=== PATIENT | female | born 1965 | race African-American/Black ===

== ENCOUNTER 2025-11-02 15:08 | Outpatient (AMB) | payer OTHER, SELFPAY ==
[2025-11-02 15:13] VITALS: BMI 29.0
--- NOTE | 2025-11-02 15:13 | A.PHYSOV_ITS ---
Vital Signs 11/02/25 15:13 Height 5 ft 4 in Weight 169 lb BMI 29.0 Intake Visit Reasons: F/U after Physical Therapy Intake Note: Patient is a 60 year old female here today for follow up after PT Cad Application Support Specialist Required: No Allergies No Known Allergies Allergy (Verified 11/02/25 15:15) HPI Comments Details: History of Present Illness The patient is a 60 year old female presenting with left knee pain and foot numbness. 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 The pain is located from the knee down and is currently rated at a 5 out of 10. She denies any associated back pain, thigh pain, or symptoms of sciatica. The patient also complains of numbness in her left foot, though her bran is not numb. The numbness is not painful but is annoying, particularly when it's cold. Previous physical therapy did not provide relief for her symptoms. She has taken Aleve, but it does not really help her pain. A left knee x-ray from August 21, 2025, revealed minimal degenerative changes. Patient does report paresthesias to the left foot. She has a pain level today of 7/10. Patient is not requesting any sort of injections as she is afraid of needles. Pain Description - Location: The pain is in the left knee, described as being from the knee down. - Severity: Current pain level is a 5 out of 10. - Exacerbating factors: Pain worsens with activity, such as going up and down stairs and standing. - Relieving factors: Pain is minimal when not using the knee. - Associated symptoms: Numbness is present in the left foot. Results - Imaging: - Left knee X-ray (August 21, 2025): Minimal degenerative change. [facility] Social History Alcohol intake: current Alcohol intake frequency: does not drink Patient Tobacco Use Status: Never used Tobacco Use of substances other than those prescribed or required for medical reasons: No Current occupational status: employed Review of Systems Narrative Review of Systems - Musculoskeletal: Reports pain in the left knee. - Neurological: Reports numbness in the left foot. - Denies back pain, thigh pain, or sciatica. - Constitutional: Denies claustrophobia. Physical Exam Exam Exam: Physical Exam Lumbar Spine: Nontender to palpation of her lumbar spine. Full range of motion. Special Tests: Lhermittes sign was negative Heel Toe walk is normal Left straight leg raise: Negative Right straight leg raise: Negative Special tests Sharon test is negative Ganslen's test is negative SI Joint compression test negative Ness test negative Piriformis stretch is negative Lower Extremities: Full range of motion bilateral lower extremities. She is tender to the medial joint line of the left knee. She also has tenderness with mild popliteal fullness to posterior knee. Her ligaments are intact. She does have pain with Abbi testing medially. Neuro: Sensation: Intact to lower extremities bilaterally Strength L2 (Psoas): 5/5 on the left and 5/5 on the right. L3 (Quads): 5/5 on the left and 5/5 on the right. L4 (Ant tibialis): 5/5 on the left and 5/5 on the right. L5 (EHL) 5/5 on the left and 5/5 on the right. S1 (Gastroc): 5/5 on the left and 5/5 on the right. DTR L4: (Patellar) Left 2 Right 2 S1: (Achilles) Left 1 Right 1 Babinski Downgoing No pathologic clonus. No involuntary movement. Vital Signs: BMI result Body Mass Index 29.0 Assessment & Plan Assessment & Plan (1) Left knee pain: Code(s): M25.562 - Pain in left knee Category: Medical Qualifiers: Chronicity: chronic Qualified Code(s): M25.562 - Pain in left knee; G89.29 - Other chronic pain (2) Neuropathy: Code(s): G62.9 - Polyneuropathy, unspecified Category: Medical (3) Acute medial meniscus tear of left knee: Code(s): S83.242A - Other tear of medial meniscus, current injury, left knee, initial encounter Category: Medical Plan Pain Management - Affect: The patient describes her foot numbness as annoying. - Analgesia: Current pain is rated a 5 out of 10. - She takes Aleve for pain, but reports it is not really helpful. 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 Plan Patient was informed and verbally consented to the use of an ambient scribe for clinic note documentation during this visit. 1. Left Knee Pain The patient's knee pain is associated with activity, and an X-ray showed minimal degenerative changes. It was explained that this mild arthritis may not be the cause of her pain. Options discussed included a cortisone shot to see if the pain resolves, which would confirm the knee as the source, or an MRI of the knee for a more detailed evaluation of cartilage and other structures, as an MRI can reveal conditions like a meniscus tear or more significant arthritis not visible on X-ray. Recommend MRI of her left knee as she has failed conservative treatment. We are concerned for meniscus tear. 2. Left Foot Numbness The patient's foot numbness is unlikely related to her knee problem. Sciatica is less likely given her lack of back pain. An EMG was discussed as a diagnostic option to evaluate for a pinched nerve or nerve damage, which could help i dentify the source of the numbness. The patient has opted to defer this workup for now and focus on the knee evaluation. Discussion Notes I discussed the results of the recent left knee x-ray, which showed only minimal degenerative changes. I presented a few different diagnostic paths. For the knee pain, I offered a cortisone injection or an MRI to better evaluate the joint structures, noting an MRI could reveal issues like a meniscus tear or worsening arthritis not seen on the x-ray. For the foot numbness, I explained that it's likely unrelated to her knee and discussed an EMG as a test to check for a pinched nerve or other nerve damage, specifying that the procedure can be uncomfortable. The patient is not claustrophobic and has no metal in her body. After discussing the options, she decided to start with an MRI of the left knee. I will place the order for the MRI and we will obtain insurance authorization. We will have her return for a follow-up appointment to review the results. Patient Instructions - I am placing an order for an MRI of your left knee. - My office will contact your insurance company to get this test approved. - Once the MRI is approved, you will be contacted to schedule your appointment. - The MRI does not involve any needles. - After the MRI is complete, you will need to schedule a follow-up visit with me to discuss the results. Orders: Orders MR knee LT wo con Today G89.29 - Other chronic pain, M25.562 - Pain in left knee, M25.569 - Pain in unspecified knee, S83.242A - Other tear of medial meniscus, current injury, left knee, initial encounter Coding Level of Care Code Tele Est Pt Level 3 (88334) Diagnoses Chronic pain of left knee M25.562; G89.29 Chronicity: chronic Neuropathy G62.9 Acute medial meniscus tear of left knee S83.242A
--- OUTSIDE RECORDS SUMMARY | 2025-11-02 21:43 | XMS_ITS | Continuity of Care Document ---
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 Plan of Treatment Reminders Order Date Submit Date Provider Last Modified By Organization Details Last Modified Time Details Appointments FOLLOW UP 30MIN 2025 03:30P M Audie Moss PA-C Not available Not available Not available Lab None recorded . Referral None recorded . Procedures None recorded . Surgeries None recorded . Imaging None recorded . Medication Orders None recorded . Patient TargetsNo targets recorded. Patient Instructions Encounter Date Encounter Id Patient Instructions Last Modified By Organization Details Last Modified Time 10/12/2025 [id number] encouraged pt to check outstanding labs as directed [email or web address] Not available 10/12/2025 15:48:36 Medications (OTC , herbal therapies, supplements) reviewed and reconciled with patient and or caregiver, including potential side effects, drug interactions, instructions, and the consequences of not taking medication. Reviewed potential barriers to medication adherence, such as side effects from medication or cost of medication. [email or web address] Not available 10/12/2025 15:55:24 Reason for Referral None Reported. Problems Name Problem SNOMED Code Status Onset Date Resolution Date Notes Provider Name and Address Organization Details Recorded Time Visual impairme nt [id number] Completed 08/27/2025 Audie Moss PA-C [address] [facility] [address], [place], [address], [place] [facility] 5 15:42:37 Generali zed abdomina l pain 206561725 Completed 200706/25/2014 RECORDED 08/10/20 08 1:22PM BY ROSY ÁLVAREZ, ANNOTATI ON/ADDEN DUM Otoniel D'Alessan eleazar null, [facility] 5 16:38:26 Right lower quadrant pain 279040198 Completed 200706/25/2014 RECORDED 08/10/20 08 1:22PM BY ANA HALLMANATI ON/ADDEN DUM Otoniel D'Alessan eleazar null, [facility] 5 16:38:26 Bronchos pasm [id number] Completed 200706/25/2014 RECORDED 08/10/20 08 1:22PM BY ROSY ÁLVAREZ, ANAATI ON/ADDEN DUM Otoniel D'Alessan eleazar null, [facility] 5 16:38:25 General examinat ion of patient Completed 200706/25/2014 RECORDED 08/10/20 08 1:22PM BY ANA HALLMANATI ON/ADDEN DUM Otoniel D'Alessan eleazar null, [facility] 5 16:38:26 Generali zed abdomina l pain 555173939 Completed 200706/26/2014 RECORDED 08/10/20 08 1:22PM BY ANA HALLMANATI ON/ADDEN DUM Otoniel D'Alessan eleazar null, [facility] 5 16:38:26 Right lower quadrant pain 661651250 Completed 200706/26/2014 RECORDED 08/10/20 08 1:22PM BY ROSY ÁLVAREZ ANNOTATI ON/ADDEN DUM Otoniel D'Alessan eleazar null, [facility] 5 16:38:26 Bronchos pasm [id number] Completed 200706/26/2014 RECORDED 08/10/20 08 1:22PM BY ROSY ÁLVAREZ, ANAATI ON/ADDEN DUM Otoniel D'Alessan eleazar null, [facility] 5 16:38:25 General examinat ion of patient Completed 200706/26/2014 RECORDED 08/10/20 08 1:22PM BY ROSY ÁLVAREZ, ANNOTATI ON/ADDEN DUM Otoniel D'Alessan eleazar null, [facility] 5 16:38:26 Generali zed abdomina l pain 110210531 Completed 200706/02/2014 RECORDED 08/10/20 08 1:22PM BY ROSY ÁLVAREZ, ANNOTATI ON/ADDEN DUM Otoniel D'Alessan eleazar null, [facility] 5 16:38:26 Right lower quadrant pain 615332360 Completed 200706/02/2014 RECORDED 08/10/20 08 1:22PM BY ROSY ÁLVAREZ, ANNOTATI ON/ADDEN DUM Otoniel D'Alessan eleazar null, [facility] 5 16:38:26 Bronchos pasm [id number] Completed 200706/02/2014 RECORDED 08/10/20 08 1:22PM BY ROSY ÁLVAREZ, ANNOTATI ON/ADDEN DUM Otoniel D'Alessan eleazar null, [facility] 5 16:38:25 General examinat ion of patient Completed 200706/02/2014 RECORDED 08/10/20 08 1:22PM BY ROSY ÁLVAREZ, ANAATI ON/ADDEN DUM Otoniel D'Alessan eleazar null, [facility] 5 16:38:26 Screenin g for malignan t neoplasm of colon Completed 200806/25/2014 RECORDED 04/16/20 09 10:12AM BY CHLOE BHAKTA MA, ANNOTATI ON/ADDEN DUM Otoniel D'Alessan eleazar null, [facility] 5 16:38:26 Screenin g for malignan t neoplasm of colon Completed 200806/26/2014 RECORDED 04/16/20 09 10:12AM BY CHLOE BHAKTA MA, ANNOTATI ON/ADDEN DUM Otoniel bush null, [facility] 5 16:38:26 Screenin g for malignan t neoplasm of colon Completed 200806/02/2014 RECORDED 04/16/20 09 10:12AM BY CHLOE BHAKTA MA, ANNOTATI ON/ADDEN DUM Otoniel bush null, [facility] 5 16:38:26 Influenz a vaccine needed [id number] 06 Completed 201006/25/2014 RECORDED 09/08/20 11 9:40AM BY CHLOE BHAKTA MA, OFFICE VISIT Otoniel zarate, [facility] 5 16:38:26 Influenz a vaccine needed 43687313723 06 Completed 201006/26/2014 RECORDED 09/08/20 11 9:40AM BY CHLOE BHAKTA MA, OFFICE VISIT Otoniel zarate, [facility] 5 16:38:26 Influenz a vaccine needed 78054698467 06 Completed 201006/02/2014 RECORDED 09/08/20 11 9:40AM BY CHLOE BHAKTA MA, OFFICE VISIT Otoniel zarate, [facility] 5 16:38:26 Left lower quadrant pain 885581054 Completed 201206/25/2014 RECORDED 01/16/20 13 2:28PM BY JOSHUA ARTHUR MA, ANNOTATI ON/ADDEN [facility] Otoniel Dede bush null, [facility] 5 16:38:26 Abdomina l pain [id number] Completed 201206/25/2014 IMPRESSI ON: AFEBRILE , NON-ACUT E ABDOMEN; RECORDED 01/16/20 13 2:28PM BY JOSHUA ARTHUR MA, ANNOTATI ON/ADDEN DUM Otoniel D'Alessan eleazar null, [facility] 5 16:38:25 Acute pharyngi tis 465327581 Completed 201206/25/2014 RECORDED 01/16/20 13 2:28PM BY JOSHUA ARTHUR MA, ANNOTATI ON/ADDEN DUM Otoniel D'Alessan eleazar null, [facility] 5 16:38:25 Patient status finding [id number] Completed 201206/25/2014 RECORDED 01/16/20 13 2:27PM BY JOSHUA ARTHUR MA, ANNOTATI ON/ADDEN DUM Chloe boudreaux MA null, [facility] 6 15:28:52 Screenin g for malignan t neoplasm of breast Completed 201206/25/2014 RECORDED 01/16/20 13 2:28PM BY JOSHUA ARTHUR MA, ANNOTATI ON/ADDEN DUM Otoniel D'Alessan eleazar null, [facility] 5 16:38:26 Cough [id number] Completed 201206/25/2014 RECORDED 01/16/20 13 2:28PM BY JOSHUA ARTHUR MA, ANNOTATI ON/ADDEN DUM Otoniel D'Alessan eleazar null, [facility] 5 16:38:25 Cramp in limb 541756389 Completed 201206/25/2014 RECORDED 01/16/20 13 2:28PM BY JOSHUA ARTHUR MA, ANNOTATI ON/ADDEN DUM Otoniel D'Alessan eleazar null, [facility] 5 16:38:25 Female genital organ symptoms 429182607 Completed 201206/25/2014 RECORDED 01/16/20 13 2:28PM BY JOSHUA ARTHUR MA, ANNOTATI ON/ADDEN DUM Otoniel D'Alessan eleazar null, [facility] 5 16:38:25 Headache [id number] Completed 201206/25/2014 RECORDED 01/16/20 13 2:27PM BY JOSHUA ARTHUR MA, ANNOTATI ON/ADDEN DUM Otoniel D'Alessan eleazar null, [facility] 5 16:38:25 General symptom [id number] Completed 201206/25/2014 RECORDED 01/16/20 13 2:28PM BY JOSHUA ARTHUR MA, ANAATI ON/ADDEN DUM Otoniel D'Alessan eleazar null, [facility] 5 16:38:25 Knee pain Completed 201206/25/2014 IMPRESSI ON: XRAY C/W BARRETO'S CYST, CAUSING SIGNIFIC ANT FUNCTION AL IMPAIRME NT, X 6 MONTHS; RECORDED 01/16/20 13 2:28PM BY JOSHUA ARTHUR MA, JENNIFER ON/ADDEN DUM Otoniel Shanita'Alessan eleazar null, [facility] 5 16:38:25 Malaise and fatigue 365701490 Completed 201206/25/2014 RECORDED 01/16/20 13 2:28PM BY JOSHUA ARTHUR MA, ANNOTATI ON/ADDEN DUM Otoniel D'Alessan eleazar null, [facility] 5 16:38:25 Pneumoni a 806176233 Completed 201206/25/2014 RECORDED 01/16/20 13 2:27PM BY JOSHUA ARTHUR MA, ANNOTATI ON/ADDEN DUM Otoniel D'Alessan eleazar null, [facility] 5 16:38:25 Psychoge kristin headache 42654542 Completed 201206/25/2014 RECORDED 01/16/20 13 2:28PM BY JOSHUA ARTHUR MA, ANNOTJOSELO ON/ADDEN DUM Otoniel D'Alessan eleazar null, [facility] 5 16:38:25 Urinary tract infectio us disease 87112983 Completed 201206/25/2014 RECORDED 01/16/20 13 2:27PM BY JOSHUA ARTHUR MA, ANNOTATI ON/ADDEN DUM Otoniel D'Alessan eleazar null, [facility] 5 16:38:25 Left lower quadrant pain 304874126 Completed 201206/26/2014 RECORDED 01/16/20 13 2:28PM BY JOSHUA ARTHUR MA, ANNOTATI ON/ADDEN DUM Otoniel D'Alessan eleazar null, [facility] 5 16:38:26 Abdomina l pain 87337147 Completed 201206/26/2014 IMPRESSI ON: AFEBRILE , NON-ACUT E ABDOMEN; RECORDED 01/16/20 13 2:28PM BY JOSHUA ARTHUR MA, ANNOTATI ON/ADDEN DUM Otoniel D'Alessan eleazar null, [facility] 5 16:38:25 Acute pharyngi tis 180559436 Completed 201206/26/2014 RECORDED 01/16/20 13 2:28PM BY JOSHUA ARTHUR MA, ANNOTATI ON/ADDEN DUM Otoniel D'Alessan eleazar null, [facility] 5 16:38:25 Patient status finding [id number] Completed 201206/26/2014 RECORDED 01/16/20 13 2:27PM BY JOSHUA ARTHUR MA, ANNOTATI ON/ADDEN DUM Chloe boudreaux MA null, [facility] 6 15:28:52 Screenin g for malignan t neoplasm of breast Completed 201206/26/2014 RECORDED 01/16/20 13 2:28PM BY JOSHUA ARTHUR MA, ANNOTATI ON/ADDEN DUM Otoniel D'Alessan eleazar null, [facility] 5 16:38:26 Cough [id number] Completed 201206/26/2014 RECORDED 01/16/20 13 2:28PM BY JOSHUA ARTHUR MA, ANNOTATI ON/ADDEN DUM Otoniel D'Alessan eleazar null, [facility] 5 16:38:25 Cramp in limb 673621243 Completed 201206/26/2014 RECORDED 01/16/20 13 2:28PM BY JOSHUA ARTHUR MA, ANNOTATI ON/ADDEN DUM Otoniel D'Alessan eleazar null, [facility] 5 16:38:25 Female genital organ symptoms [id number] Completed 201206/26/2014 RECORDED 01/16/20 13 2:28PM BY JOSHUA ARTHUR MA, ANAATI ON/ADDEN DUM Otoniel D'Alessan eleazar null, [facility] 5 16:38:25 Headache [id number] Completed 201206/26/2014 RECORDED 01/16/20 13 2:27PM BY JOSHUA ARTHUR MA, ANAATI ON/ADDEN DUM Otoniel D'Alessan eleazar null, [facility] 5 16:38:25 General symptom [id number] Completed 201206/26/2014 RECORDED 01/16/20 13 2:28PM BY JOSHUA ARTHUR MA, JENNIFER ON/ADDEN DUM Otoniel D'Alessan eleazar null, [facility] 5 16:38:25 Knee pain Completed 201206/26/2014 IMPRESSI ON: XRAY C/W BARRETO'S CYST, CAUSING SIGNIFIC ANT FUNCTION AL IMPAIRME NT, X 6 MONTHS; RECORDED 01/16/20 13 2:28PM BY JOSHUA ARTHUR MA, JENNIFER ON/ADDEN DUM Otoniel D'Alessan eleazar null, [facility] 5 16:38:25 Malaise and fatigue 237053061 Completed 201206/26/2014 RECORDED 01/16/20 13 2:28PM BY JOSHUA ARTHUR MA, ANNOTJOSELO ON/ADDEN DUM Otoniel D'Alessan eleazar null, [facility] 5 16:38:25 Pneumoni a 973295035 Completed 201206/26/2014 RECORDED 01/16/20 13 2:27PM BY JOSHUA ARTHUR MA, ANNOTATI ON/ADDEN DUM Otoniel D'Alessan eleazar null, [facility] 5 16:38:25 Psychoge kristin headache 00116813 Completed 201206/26/2014 RECORDED 01/16/20 13 2:28PM BY JOSHUA ARTHUR MA, ANNOTATI ON/ADDEN DUM Otoniel D'Alessan eleazar null, [facility] 5 16:38:25 Urinary tract infectio us disease 22528719 Completed 201206/26/2014 RECORDED 01/16/20 13 2:27PM BY JOSHUA ARTHUR MA, ANNOTATI ON/ADDEN DUM Otoniel D'Alessan eleazar null, [facility] 5 16:38:25 Left lower quadrant pain 620936554 Completed 201206/02/2014 RECORDED 01/16/20 13 2:28PM BY JOSHUA ARTHUR MA, ANNOTATI ON/ADDEN DUM Otoniel D'Alessan eleazar null, [facility] 5 16:38:26 Abdomina l pain 90319303 Completed 201206/02/2014 IMPRESSI ON: AFEBRILE , NON-ACUT E ABDOMEN; RECORDED 01/16/20 13 2:28PM BY JOSHUA ARTHUR MA, ANNOTJOSELO ON/ADDEN DUM Otoniel D'Alessan eleazar null, [facility] 5 16:38:25 Acute pharyngi tis 405077442 Completed 201206/02/2014 RECORDED 01/16/20 13 2:28PM BY JOSHUA ARTHUR MA, ANNOTATI ON/ADDEN DUM Otoniel D'Alessan eleazar null, [facility] 5 16:38:25 Patient status finding [id number] Completed 201206/02/2014 RECORDED 01/16/20 13 2:27PM BY JOSHUA ARTHUR MA, ANNOTJOSELO ON/ADDEN DUM Chloe boudreaux MA null, [facility] 6 15:28:52 Screenin g for malignan t neoplasm of breast Completed 201206/02/2014 RECORDED 01/16/20 13 2:28PM BY JOSHUA ARTHUR MA, ANNOTATI ON/ADDEN DUM Otoniel D'Alessan eleazar null, [facility] 5 16:38:26 Screenin g for malignan t neoplasm of cervix Completed 201206/02/2014 RECORDED 01/16/20 13 2:28PM BY JOSHUA ARTHUR MA, ANNOTATI ON/ADDEN DUM Chloe Mohit boudreaux MA null, [facility] 6 15:28:49 Cough 45477658 Completed 201206/02/2014 RECORDED 01/16/20 13 2:28PM BY JOSHUA ARTHUR MA, ANNOTATI ON/ADDEN DUM Otoniel D'Alessan eleazar null, [facility] 5 16:38:25 Cramp in limb 402312619 Completed 201206/02/2014 RECORDED 01/16/20 13 2:28PM BY JOSHUA ARTHUR MA, ANNOTATI ON/ADDEN DUM Otoniel D'Alessan eleazar null, [facility] 5 16:38:25 Divertic ulitis of colon 943484505 Completed 201206/02/2014 RECORDED 01/16/20 13 2:28PM BY JOSHUA ARTHUR MA, ANNOTATI ON/ADDEN DUM Chloe Mohit boudreaux MA null, [facility] 6 15:28:02 Female genital organ symptoms 540395548 Completed 201206/02/2014 RECORDED 01/16/20 13 2:28PM BY JOSHUA ARTHUR MA, ANNOTATI ON/ADDEN DUM Otoniel D'Alessan eleazar null, [facility] 5 16:38:25 Headache 55352104 Completed 201206/02/2014 RECORDED 01/16/20 13 2:27PM BY JOSHUA ARTHUR MA, ANNOTATI ON/ADDEN DUM Otoniel D'Alessan eleazar null, [facility] 5 16:38:25 General symptom 788756210 Completed 201206/02/2014 RECORDED 01/16/20 13 2:28PM BY JOSHUA ARTHUR MA, ANNOTATI ON/ADDEN DUM Otoniel D'Alessan eleazar null, [facility] 5 16:38:25 Knee pain Completed 201206/02/2014 IMPRESSI ON: XRAY C/W BARRETO'S CYST, CAUSING SIGNIFIC ANT FUNCTION AL IMPAIRME NT, X 6 MONTHS; RECORDED 01/16/20 13 2:28PM BY JOSHUA ARTHUR MA, ANNOTATI ON/ADDEN DUM Otoniel D'Alessan eleazar null, [facility] 5 16:38:25 Malaise and fatigue 936694517 Completed 201206/02/2014 RECORDED 01/16/20 13 2:28PM BY JOSHUA ARTHUR MA, ANNOTATI ON/ADDEN DUM Otoniel D'Alessan eleazar null, [facility] 5 16:38:25 Pneumoni a 141868250 Completed 201206/02/2014 RECORDED 01/16/20 13 2:27PM BY JOSHUA ARTHUR MA, ANNOTATI ON/ADDEN DUM Otoniel D'Alessan eleazar null, [facility] 5 16:38:25 Psychoge kristin headache [id number] Completed 201206/02/2014 RECORDED 01/16/20 13 2:28PM BY JOSHUA ARTHUR MA, ANNOTATI ON/ADDEN DUM Otoniel D'Alessan eleazar null, [facility] 5 16:38:25 Urinary tract infectio us disease 01813132 Completed 201206/02/2014 RECORDED 01/16/20 13 2:27PM BY JOSHUA ARTHUR MA, ANNOTATI ON/ADDEN DUM Otoniel D'Alessan eleazar null, [facility] 5 16:38:25 Adult health examinat ion Completed 201206/25/2014 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; RECORDED 03/11/20 13 1:32PM BY CHLOE BHAKTA MA, ANNOTATI ON/ADDEN DUM Chloe boudreaux MA null, [facility] 6 15:28:45 Adult health examinat ion Completed 201206/26/2014 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; RECORDED 03/11/20 13 1:32PM BY CHLOE BHAKTA MA, ANNOTATI ON/ADDEN DUM Chloe boudreaux MA null, [facility] 6 15:28:45 Adult health examinat ion Completed 201206/02/2014 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; RECORDED 03/11/20 13 1:32PM BY CHLOE BHAKTA MA, ANNOTATI ON/ADDEN DUM ROSY Calles, [facility] 6 15:28:45 Mammogra phy abnormal [id number] Completed 201306/25/2014 RECORDED 01/23/20 14 3:36PM BY JOSHUA ARTHUR MA, JENNIFER ON/ADDEN DUM Otoniel zarate, [facility] 5 16:38:26 Follow-u p encounte r Completed 201306/25/2014 RECORDED 01/23/20 14 3:36PM BY JOSHUA ARTHUR MA, ANNOTATI ON/ADDEN DUM Otoniel zarate, [facility] 5 16:38:26 Mammogra phy abnormal 485116872 Completed 201306/26/2014 RECORDED 01/23/20 14 3:36PM BY JOSHUA ARTHUR MA, ANNOTATI ON/ADDEN DUM Otoniel Diehl'Alecameliaan eleazar null, [facility] 5 16:38:26 Follow-u p encounte r Completed 201306/26/2014 RECORDED 01/23/20 14 3:36PM BY JOSHUA ARTHUR MA, ANNOTATI ON/ADDEN DUM Otoniel FernandezAlecameliaan eleazar null, [facility] 5 16:38:26 Mammogra phy abnormal [id number] Completed 201306/02/2014 RECORDED 01/23/20 14 3:36PM BY JOSHUA ARTHUR MA, ANNOTATI ON/ADDEN DUM Otoniel FernandezAlecameliaan eleazar null, [facility] 5 16:38:26 Anemia 927443960 Completed 201308/27/2025 Audie Moss PA-C [address], [place], [address] [place] [address] 5 15:42:52 Divertic ulitis of colon 565885758 Active 2013 ROSY Calles, [facility] 6 15:28:02 Follow-u p encounte r Completed 201306/02/2014 RECORDED 01/23/20 14 3:36PM BY JOSHUA ARTHUR MA, ANNOTATI ON/[facility][NOTE 3] Otoniel Aguayo eleazar null, [facility] 5 16:38:26 Adult health examinat ion Completed 201310/30/2016 ROSY Calles, [facility] 6 15:28:45 Herpes zoster 6880815 Active 2013 ROSY Calles, [facility] 6 15:28:25 Anxiety disorder 390561085 Completed 201308/27/2025 Audie Moss PA-C [address], [place], [address], [facility] 5 15:42:31 Insomnia 071371698 Completed 201309/22/2019 Removal Reason: RESOLVED 2014 ROSY Alvarez, [facility] 9 15:56:31 Leukopen ia 39077583 Completed 201308/25/2024 Audie Moss PA-C [address] [facility] [address], [place], [address], [facility] 4 15:04:19 Neutrope kristin disorder 238670341 Active 2013 hematolo gy ov 01/2019, no followup needed, Dr Brian zarate [facility] 9 15:06:39 Patient status finding [id number] Completed 201310/30/2016 ROSY Calles [facility] 6 15:28:52 Administ ration of diphther ia, pertussi s, and tetanus vaccine Completed 201310/30/2016 ROSY Calles [facility] 6 15:28:39 Function al visual loss 573500502 Completed 201309/22/2019 Removal Reason: ON TWICE ROSY Alvarez [facility] 9 15:56:55 Screenin g for malignan t neoplasm of cervix Completed 201310/30/2016 ROSY Calles [facility] 6 15:28:49 Pain in limb 39839104 Completed 201310/30/2016 ROSY Calles [facility] 6 15:28:58 Hyperlip idemia 03976524 Active 2020 Jaquelin zarate [facility] 1 23:41:30 COVID-19 615374731 Completed 202108/27/2025 Audie Moss PA-C [address], [place], [address], [facility] 5 15:42:57 Neuropat hy 483223139 Active 2023 Audie Moss PA-C [address], [place], [address], [facility] 4 15:22:23 Prediabe pillo 501625778 Active 2024 Audie Moss PA-C [address], [place], [address], [facility] 5 18:30:16 Snoring 39211706 Active 2024 Audie Moss PA-C [address], [place], [address], [facility] 5 18:30:22 Pain of left knee joint 78452126122 4107 Active 2024 Audie Moss PA-C [address], [place], [address], [facility] 5 15:55:49 Problem Notes None recorded. Procedures Surgical History Date Name Laterality Status Provider Name and Address Organization Details Recorded Time 10/06/20 24 Most Recent Mammogram completed Kathleen Grimes [facility] 10/07/2024 08:58:14 10/03/20 23 Ultrasound breast limited completed Kathleen Grimes [facility] 10/04/2023 07:51:52 09/21/20 21 Mammogram Screening completed Mar Allen [facility] 11/02/2021 15:10:25 08/23/20 21 Date of Last Pap Smear completed Mar Allen [facility] 11/10/2021 16:27:30 01/09/20 20 injection completed Susana Concepcion [facility] 01/15/2020 13:09:44 04/08/20 18 Date of Last Colonoscopy completed Ruchi Marcus [facility] 04/08/2018 14:21:16 04/08/20 18 Colonoscopy completed Ruchiely LemusAmrcus [facility] 04/08/2018 14:20:58 11/19/19 10 partial resection of colon completed Jaquelin Paulette [facility] 09/22/2019 17:07:21 Other completed Hanny Mattson [facility] 10/18/2015 14:23:49 Imaging Results None recorded. Procedure Notes None recorded. Medical Equipment None Reported. Allergies No known drug allergies Medications Name Sig Start Date Stop Date Status Note LastModified by Organization Details LastModified Time amoxicill in 500 mg capsule 08/25 completed Not Available Not Available Not Available benzonata te 200 mg capsule Q 8 HR 06/18 completed RECORDED 10/01/20 09 10:39AM BY JAGDISH ARTHUR, PAIsaacC, MEDICATI ON AUTO-DERICK CTIVATIO N; Not Available Not Available Not Available valacyclo vir 1 gram tablet Take 2 tabs Q12 hours x 1 day 08/25 completed Not Available Not Available Not Available hydrocodo ne 5 mg-acetam inophen 325 mg tablet Take 1 tablet every 6 hours by oral route for 5 days. 10/20 completed Not Available Not Available Not Available metronida zole 500 mg tablet THREE TIMES DAILY 04/30 completed RECORDED 06/08/20 09 8:55AM BY ELIANA Bonilla NP, MEDICATI ON AUTO-DERICK CTIVATIO N; Not Available Not Available Not Available meloxicam 7.5 mg tablet 09/22 completed Not Available Not Available Not Available citalopra m 20 mg tablet DAILY 12/29 completed RECORDED 12/29/19 11 10:50AM BY OTONIEL BUSH MD, ANNOTATI ON/ADDEN DUM; Not Available Not Available Not Available lorazepam 0.5 mg tablet 1/2 - 1 tab po bid prn 12/06 completed Not Available Not Available Not Available naproxen sodium 550 mg tablet Take 1 tablet every 12 hours by oral route as needed. 01/17 completed Not Available Not Available Not Available gabapenti n 300 mg capsule Take 1 capsule 3 times a day by oral route for 30 days. 10/20 completed Not Available Not Available Not Available mupirocin 2 % topical ointment APPLY A SMALL AMOUNT TO THE AFFECTED AREA BY TOPICAL ROUTE 3 TIMES PER DAY 08/25 completed Not Available Not Available Not Available gabapenti n 100 mg capsule Take 1 capsule 3 times a day by oral route for 30 days. 08/27 completed Not Available Not Available Not Available ibuprofen 600 mg tablet Take 1 tablet 3 times a day by oral route as needed for 10 days. 05/17 completed Not Available Not Available Not Available levofloxa zbigniew 500 mg tablet DAILY 04/30 completed RECORDED 06/08/20 09 8:55AM BY ELIANA Bonilla NP, MEDICATI ON AUTO-DERICK CTIVATIO N; Not Available Not Available Not Available ketoconaz ole 2 % topical cream APPLY TO THE AFFECTED AREA(S) BY TOPICAL ROUTE ONCE DAILY 02/10 completed Not Available Not Available Not Available ondansetr on 4 mg disintegr ating tablet Place 1 tablet 3 times a day by translin gual route as needed for 5 days. 08/25 completed Not Available Not Available Not Available naproxen 500 mg tablet TAKE 1 TABLET BY MOUTH TWO TIMES A DAY WITH FOOD 06/30 completed Not Available Not Available Not Available amoxicill in 875 mg-potass ium clavulana te 125 mg tablet BID 06/30 completed RECORDED 07/09/20 08 7:06AM BY ELIANA Bonilla NP, MEDICATI ON AUTO-DERICK CTIVATIO N; Not Available Not Available Not Available oxycodone 5 mg tablet TAKE 1 TO 2 TABLETS BY MOUTH EVERY 4 TO 6 HOURS NEEDED FOR PAIN (DO NOT DRIVE WHILE ON THIS MEDICATI ON) 08/25 completed Not Available Not Available Not Available albuterol (refill) 90 mcg/actua tion aerosol inhaler Q 4HR/PRN 07/21 completed RECORDED 07/21/20 11 9:14AM BY ROBERT SANTOYO MA, OFFICE VISIT; Not Available Not Available Not Available cyclobenz aprine 5 mg tablet Take 1 tablet 3 times a day by oral route as needed for 5 days. 02/12 completed Not Available Not Available Not Available Readi-Cat 2 2.1 % (w/v), 2.0 % (w/w) oral suspensio n Take 450 mL twice a day by oral route as directed for 1 day. 12/08 completed Not Available Not Available Not Available Robaxin-7 50 1 po four times daily, prn 01/17 completed Not Available Not Available Not Available Guiatuss AT BEDTIME 09/15 completed RECORDED 09/28/20 11 2:22PM BY SHALINI MIX PA-C, MEDICATI ON AUTO-DERICK CTIVATIO N; Not Available Not Available Not Available Multi Vitamin 1 PO QD 01/27 completed Not Available Not Available Not Available Vitals Date Recorded Body height Body mass index (BMI) Body weight Heart rate Oxygen saturation Body temperature Systolic And Diastolic Provider Name and Address Organization Details Last Updated DateTime 5 161.29 cm 29.8 kg/m2 28224.3 g 85 /min 99 % 97.6 [degF] 104/66 mm[Hg] Annalise Kelsey MA [facility] [facility] 15:13:57 Social History Question Answer Notes LastModified by Organizat ion Details LastModified Time Tobacco Smoking Status [facility] [place] [facility] 14:22:44 Do You Have An Advance Directive? Yes [email or web address] Information not available 02/10/2022 Is Blood Transfusion Acceptable In An Emergency? Yes Information not available 10/20/2016 What Is Your Level Of Caffeine Consumption? Occasional 1-2 Cups Daily Coffee [email or web address] Information not available 02/10/2022 How Much Tobacco Do You Chew? None Information not available 10/20/2016 What Type Of Diet Are You Following? REGULAR Information not available 10/20/2016 Which Illicit Or Recreational Drugs Have You Used? None [email or web address] Information not available 10/20/2016 Live Alone Or With Others? With Others Pt Lives W/ Dtr Age 19other Children Are On Their Own. [email or web address] Information not available 02/10/2022 Do You Take Precautions To Prevent Distracted Driving? Yes [email or web address] Information not available 10/20/2016 How Often Do You Need To Have Someone Help You When You Read Instructions, Pamphlets, Or Other Written Material From Your Doctor Or Pharmacy? Never Information not available 10/20/2016 Have You Served In The ? No [email or web address] Information not available 10/20/2016 What Was The Date Of Your Most Recent Tobacco Screening? 08/27/2025 [email or web address] Information not available 08/27/2025 How Many Children Do You Have? 3 [email or web address] Information not available 10/20/2016 Do You Use Protection During Sex? No kcQoturemontone Information not available 02/10/2022 Do You Use Your Seat Belt Or Car Seat Routinely? Yes [email or web address] Information not available 02/10/2022 Seat Belts Used Routinely Yes Information not available 02/10/2022 Are You Sexually Active? Yes kcQoturemontone Information not available 02/10/2022 Smoke Alarm In Home Yes Resilincbymontone Information not available 02/10/2022 Do You Have Smoke And Carbon Monoxide Detectors In Your Home? Yes [employer] Information not available 02/10/2022 At What Age Did You Start Smoking Tobacco? 0 Information not available 10/30/2016 Are You Passively Exposed To Smoke? No Information not available 10/20/2016 How Much Tobacco Do You Smoke? No Information not available 10/18/2015 Do You Use Sunscreen Routinely? No [email or web address] Information not available 10/20/2016 How Many Years Have You Smoked Tobacco? 0 Information not available 10/30/2016 Sex: Unknown Functional Status Question Answer Note LastModified by Organizat ion Details LastModified Time What is your level of alcohol consumption? None Information not available 10/20/2016 Do you or have you ever used smokeless tobacco? Never used smokeless tobacco [email or web address] Information not available 09/22/2019 Are you currently employed? Yes [email or web address] Information not available 10/20/2016 Are you able to walk independently without assistance or assistive devices? YESWOREST kcoscar Information not available 02/10/2022 Are you able to care for yourself independently? Yes Information not available 10/18/2015 What is your occupation? [employer] Information not available 10/20/2016 Do you or have you ever used e-cigarettes or vape? Never used electronic cigarettes Information not available 02/10/2022 What is your exercise level? Moderate daily for 1 hour Information not available 02/12/2023 Mental Status None recorded. Family History Relationship Description Onset Age of this Age Resolved Age Notes LastModified by Organization Details LastModified Time Mother Carcinoma in situ of breast 61 [email or web address] Not available 16:42:30 Father Carcinoma in situ of lung 60 [email or web address] Not available 10/18/2015 16:42:30 Notes:no fh OF [facility] Medical History Condition Response Diverticulitis Y Gynecological History Statement/Question Response Date of Last Pap Smear 08/23/2021 Date of Last Colonoscopy 04/08/2018 Most Recent Mammogram 10/06/2024 Obstetrics History GPAL:G 0 P 0 0 0 0 Immunizations Vaccine Type Date Status Note Provider Nam e and Address Organization Details Recorded Time Influenza, split virus, quadrivalent, preservative 6 completed William zarate [facility] 10/20/2016 15:30:52 Influenza, split virus, quadrivalent, preservative 8 completed ROSY Santana [facility] 12/06/2018 13:37:22 Influenza, split virus, quadrivalent, preservative 9 completed ROSY Alvarez [facility] 09/22/2019 15:50:34 Influenza, split virus, quadrivalent, preservative 0 completed [facility] 11/21/2021 09:00:39 Influenza, MDCK, quadrivalent, PF 8 completed ROSY Alvarez [facility] 10/31/2021 09:41:41 Influenza, split virus, quadrivalent, PF 7 completed ROSY Alvarez [facility] 10/31/2021 09:41:41 Td (adult), 2 Lf tetanus toxoid, preservative free, adsorbed 5 completed Not Available [facility] 06/02/2014 13:22:33 Tdap 4 completed Not Available [facility] 06/02/2014 13:22:33 Past Encounters Encounter ID Performer Location Encounter Start Date Encounter Closed Date Diagnosis/Indication Diagnosis SNOMED-CT Code Diagnosis ICD10 Code Diagnosis IMO Codes Diagnosis Note [id number] Harpal Adames MD Main Office [address] [facility] [place] [id number] 10/12/2025 15:04:37 10/12/2025 15:54:40 Influenza vaccination declined 403004071 Z28.21 04248893 Pain of le ft knee joint 0483839809 23523 M25.562 454154 minimal djd on xray - cont f/u pmr, pending start PT next weektrial c turmeric qd as well as lars wrap - ambulating better in office p applicatio n of lars wrap 11.25 - seen by pmr, seen by PT - no sig helphas not seen pmr in f/u - rev 10.3.25 ov note - consider mri if no betterrec aleve 1-2 tabs 2x/day c food prn Prediabetes 784137704 R7 3.03 Katrin - unfortunat tricia you have evidence of pre-diabet es - rec. less sugar intake (candy, ice cream, soda/juice , etc), follow a low carb diet and get plenty of aerobic exercise to help you to lose weight. 11.25 - rec less OJencourag ed pt to check outstandin g labs as directed Health Concerns Section Related Observation LastModified by Organization Detai ls LastModified Time None Recorded Concern Status LastModified by Organization Details LastModified Time None Recorded Payers Encounter Date Sequence Insurance Name Policy Number Policy Jesus Covered Member ID Jesus Member ID Guarantor Name 10/12/2025 1 [facility] ([facility]) [id number] Katrin Jody [id number] Katrin Vera Notes Date Note Type Note Provider Name and Address Organization Details Recorded Time 10/12/2025 text/html here for neuropathy -- f/u left knee and numb left foot, trouble walking up steps and standing for long timerev pe 10.9 & last ov note 7.1did get some mild help c lars wrap - but pain persists, so stoppedaggravated LLE pain (knee to foot) 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
--- OUTSIDE RECORDS SUMMARY | 2025-11-02 21:43 | XMS_ITS | Continuity of Care Document ---
Author Organization [facility] [place], Main Office Address [address] [facility] [address] [place] [id number] Care Team Providers Care Laborer Ammunition Assembly Name Role Phone [facility] SCHEDULING ASSISTANT Referring Provider AUDIE MOSS Primary Care Provider [phone] FAMILY PHYSIATRY Referring Provider [phone] ADA MIXON Gis Scientist Assessment No assessment recorded. Plan of Treatment Reminders Order Date Submit Date Provider Last Modified By Organization Details Last Modified Time Details Appointments FOLLOW UP 30MIN 2025 03:30P M Audie Moss PASofi Not available Not available Not available Lab HbA1c (hemoglob in A1c), blood 2024 025 [facility], [address] [facility], [address] [place], [address], 08/27/2025 16:07:19 lipid panel, serum 2024 025 [facility], [address] , [facility], [place], [address], 08/27/2025 16:07:16 CMP, serum or plasma 2024 025 [facility], [address], [place] , [place], [address], 08/27/2025 16:07:14 TSH, ultra-sen sitive, serum 2024 025 [facility] (Centralized Electronic Ordering - All Locations), Patient Can Go To The Location Of Their Choice, [address] 08/27/2025 16:07:20 CBC w/ auto diff 2024 [facility], [address], [place] , [place], [address], 08/27/2025 16:07:17 vitamin D, 25-hydrox y, total, serum 2024 [facility], [address], [place], [address], 08/27/2025 16:07:20 Referral gynecolog ist referral - Patient to schedule 2024 Not available 08/27/2025 16:12:28 sleep medicine referral 2024 [facility], [address] [facility], [place], [address], 08/28/2025 10:49:19 nutrition ist/dieti moody referral 2024 [email or web address] Not available 08/28/2025 10:43:49 Procedures None recorded. Surgeries None recorded. Imaging None recorded. Medication Orders None recorded. Patient TargetsNo targets recorded. Patient Instructions Encounter Date Encounter Id Patient Instructions Last Modified By Organization Details Last Modified Time 08/27/2025 [id number] knee pain or injury: care instructions pmadden Not available 08/27/2025 16:07:09 knee arthritis: care instructions pmadden Not available 08/27/2025 16:07:09 Cervical Cancer Screening pmadden Not available 08/27/2025 16:07:09 When You Want to Lose Weight: Care Instructions pmadden Not available 08/27/2025 16:07:09 Nutrition Referral and Weight Management Follow-up Information pmadden Not available 08/27/2025 16:07:09 Medications (OTC , herbal therapies, supplements) reviewed and reconciled with patient and or caregiver, including potential side effects, drug interactions, instructions, and the consequences of not taking medication. Reviewed potential barriers to medication adherence, such as side effects from medication or cost of medication. pmadden Not available 08/27/2025 16:06:58 Reason for Referral Government Instructor Referral for Sc reening for malignant neoplasm of cervix Patient to schedule Referring Physician: Audie Moss, Internal Medicine, Encounter Date: 08/27/2025 Sole Trimmer/dietitian Refer ral for Body mass index 25-29 - overweight Referring Physician: Audie Moss, Internal Medicine, Encounter Date: 08/27/2025 Sleep Medicine Referral for Snoring Referring Physician: Audie Moss, Internal Medicine, Encounter Date: 08/27/2025 Results Created Date Observation Date Name Description Value Unit Range Abnormal Flag Note LastModifiedBy Organization Detail LastModifiedTime 08/26/2008/21/2025 XR, knee No observ ation record ed. pmadden [facility] [address] [place], [address], 08/27/2025 15:48:40 Result Notes None recorded. Problems Name Problem SNOMED Code Status Onset Date Resolution Date Notes Provider Name and Address Organization Details Recorded Time Visual impairme nt 314560360 Completed 08/27/2025 Audie Moss PA-C [address] [facility] [address], [place], [address] [place] [address] 5 15:42:37 Generali zed abdomina l pain [id number] Completed 200706/25/2014 RECORDED 08/10/20 08 1:22PM BY JENNIFER HALLMAN ON/AMINTA zarate [facility] [place] 5 16:38:26 Right lower quadrant pain 204979548 Completed 200706/25/2014 RECORDED 08/10/20 08 1:22PM BY JENNIFER HALLMAN ON/AMINTA zarate [facility] [place] 5 16:38:26 Bronchos pasm [id number] Completed 200706/25/2014 RECORDED 08/10/20 08 1:22PM BY ROSY ÁLVAREZ, ANNOTATI ON/ADDEN DUM Otoniel D'Alessan eleazar null, [facility] [place] 5 16:38:25 General examinat ion of patient Completed 200706/25/2014 RECORDED 08/10/20 08 1:22PM BY ROSY ÁLVAREZ, ANNOTATI ON/ADDEN DUM Otoniel D'Alessan eleazar null, [facility] [place] 5 16:38:26 Generali zed abdomina l pain 010146242 Completed 200706/26/2014 RECORDED 08/10/20 08 1:22PM BY ROSY ÁLVAREZ, ANNOTATI ON/ADDEN DUM Otoniel D'Alessan eleazar null, [facility] [place] 5 16:38:26 Right lower quadrant pain 749928193 Completed 200706/26/2014 RECORDED 08/10/20 08 1:22PM BY ROSY ÁLVAREZ, ANNOTATI ON/ADDEN DUM Otoniel D'Alessan eleazar null, [facility] [place] 5 16:38:26 Bronchos pasm [id number] Completed 200706/26/2014 RECORDED 08/10/20 08 1:22PM BY ROSY ÁLVAREZ, ANNOTATI ON/ADDEN DUM Otoniel D'Alessan eleazar null, [facility] [place] 5 16:38:25 General examinat ion of patient Completed 200706/26/2014 RECORDED 08/10/20 08 1:22PM BY ROSY ÁLVAREZ ANNOTATI ON/ADDEN DUM Otoniel D'Alessan eleazar null, [facility] [place] 5 16:38:26 Generali zed abdomina l pain 646048374 Completed 200706/02/2014 RECORDED 08/10/20 08 1:22PM BY ROSY ÁLVAREZ ANNOTATI ON/ADDEN DUM Otoniel D'Alessan eleazar null, [facility] [place] 5 16:38:26 Right lower quadrant pain 803063925 Completed 200706/02/2014 RECORDED 08/10/20 08 1:22PM BY ROSY ÁLVAREZ, ANNOTATI ON/ADDEN DUM Otoniel D'Alessan eleazar null, [facility] [place] 5 16:38:26 Bronchos pasm [id number] Completed 200706/02/2014 RECORDED 08/10/20 08 1:22PM BY ROSY ÁLVAREZ, ANNOTATI ON/ADDEN DUM Otoniel D'Alessan eleazar null, [facility] [place] 5 16:38:25 General examinat ion of patient Completed 200706/02/2014 RECORDED 08/10/20 08 1:22PM BY ROSY ÁLVAREZ, ANNOTATI ON/ADDEN DUM Otoniel D'Alessan eleazar null, [facility] [place] 5 16:38:26 Screenin g for malignan t neoplasm of colon Completed 200806/25/2014 RECORDED 04/16/20 09 10:12AM BY CHLOE BHAKTA MA, ANNOTATI ON/ADDEN DUM Otoniel D'Alessan eleazar null, [facility] [place] 5 16:38:26 Screenin g for malignan t neoplasm of colon Completed 200806/26/2014 RECORDED 04/16/20 09 10:12AM BY CHLOE BHAKTA MA, ANNOTATI ON/ADDEN DUM Otoniel D'Alessan eleazar null, [facility] [place] 5 16:38:26 Screenin g for malignan t neoplasm of colon Completed 200806/02/2014 RECORDED 04/16/20 09 10:12AM BY CHLOE BHAKTA MA, ANNOTATI ON/ADDEN DUM Otoniel D'Alessan eleazar null, [facility] [place] 5 16:38:26 Influenz a vaccine needed [id number] 06 Completed 201006/25/2014 RECORDED 09/08/20 11 9:40AM BY CHLOE BHAKTA MA, OFFICE VISIT Otoniel zarate, [facility] [place] 5 16:38:26 Influenz a vaccine needed 10705945597 06 Completed 201006/26/2014 RECORDED 09/08/20 11 9:40AM BY CHLOE BHAKTA MA, OFFICE VISIT Otoniel zarate, [facility] [place] 5 16:38:26 Influenz a vaccine needed 58465402983 06 Completed 201006/02/2014 RECORDED 09/08/20 11 9:40AM BY CHLOE BHAKTA MA, OFFICE VISIT Otoniel zarate, [facility] [place] 5 16:38:26 Left lower quadrant pain 742514259 Completed 201206/25/2014 RECORDED 01/16/20 13 2:28PM BY JOSHUA ARTHUR MA, ANNOTATI ON/ADDEN DUM Otoniel FernandezZacliliana eleazar null, [facility] [place] 5 16:38:26 Abdomina l pain 28460499 Completed 201206/25/2014 IMPRESSI ON: AFEBRILE , NON-ACUT E ABDOMEN; RECORDED 01/16/20 13 2:28PM BY JOSHUA ARTHUR MA, ANNOTATI ON/ADDEN DUM Otoniel FernandezZacliliana eleazar null, [facility] [place] 5 16:38:25 Acute pharyngi tis 869026719 Completed 201206/25/2014 RECORDED 01/16/20 13 2:28PM BY JOSHUA ARTHUR MA, ANNOTATI ON/ADDEN DUM Otoniel Diehl'Alecameliaan eleazar null, [facility] [place] 5 16:38:25 Patient status finding [id number] Completed 201206/25/2014 RECORDED 01/16/20 13 2:27PM BY JOSHUA ARTHUR MA, ANNOTATI ON/ADDEN DUM Chloe boudreaux MA null, [facility] [place] 6 15:28:52 Screenin g for malignan t neoplasm of breast Completed 201206/25/2014 RECORDED 01/16/20 13 2:28PM BY JOSHUA ARTHUR MA, ANNOTATI ON/ADDEN DUM Otoniel D'Alessan eleazar null, [facility] [place] 5 16:38:26 Cough [id number] Completed 201206/25/2014 RECORDED 01/16/20 13 2:28PM BY JOSHUA ARTHUR MA, ANNOTATI ON/ADDEN DUM Otoniel D'Alessan eleazar null, [facility] [place] 5 16:38:25 Cramp in limb 277209375 Completed 201206/25/2014 RECORDED 01/16/20 13 2:28PM BY JOSHUA ARTHUR MA, ANNOTATI ON/ADDEN DUM Otoniel D'Alessan eleazar null, [facility] [place] 5 16:38:25 Female genital organ symptoms 252466805 Completed 201206/25/2014 RECORDED 01/16/20 13 2:28PM BY JOSHUA ARTHUR MA, ANNOTATI ON/ADDEN DUM Otoniel D'Alessan eleazar null, [facility] [place] 5 16:38:25 Headache 57450854 Completed 201206/25/2014 RECORDED 01/16/20 13 2:27PM BY JOSHUA ARTHUR MA, ANAATI ON/ADDEN DUM Otoniel D'Alessan eleazar null, [facility] [place] 5 16:38:25 General symptom 581501630 Completed 201206/25/2014 RECORDED 01/16/20 13 2:28PM BY JOSHUA ARTHUR MA, ANNOTATI ON/ADDEN DUM Otoniel D'Alessan eleazar null, [facility] [place] 5 16:38:25 Knee pain Completed 201206/25/2014 IMPRESSI ON: XRAY C/W BARRETO'S CYST, CAUSING SIGNIFIC ANT FUNCTION AL IMPAIRME NT, X 6 MONTHS; RECORDED 01/16/20 13 2:28PM BY JOSHUA ARTHUR MA, ANNOTATI ON/ADDEN DUM Otoniel D'Alessan eleazar null, [facility] [place] 5 16:38:25 Malaise and fatigue 740274911 Completed 201206/25/2014 RECORDED 01/16/20 13 2:28PM BY JOSHUA ARTHUR MA, ANNOTATI ON/ADDEN DUM Otoniel D'Alessan eleazar null, [facility] [place] 5 16:38:25 Pneumoni a 031777701 Completed 201206/25/2014 RECORDED 01/16/20 13 2:27PM BY JOSHUA ARTHUR MA, ANNOTATI ON/ADDEN DUM Otoniel D'Alessan eleazar null, [facility] [place] 5 16:38:25 Psychoge kristin headache 09392422 Completed 201206/25/2014 RECORDED 01/16/20 13 2:28PM BY JOSHUA ARTHUR MA, ANNOTATI ON/ADDEN DUM Otoniel D'Alessan eleazar null, [facility] [place] 5 16:38:25 Urinary tract infectio us disease 57994167 Completed 201206/25/2014 RECORDED 01/16/20 13 2:27PM BY JOSHUA ARTHUR MA, ANNOTATI ON/ADDEN DUM Otoniel D'Alessan eleazar null, [facility] [place] 5 16:38:25 Left lower quadrant pain 955693364 Completed 201206/26/2014 RECORDED 01/16/20 13 2:28PM BY JOSHUA ARTHUR MA, ANNOTATI ON/ADDEN DUM Otoniel D'Alessan eleazar null, [facility] [place] 5 16:38:26 Abdomina l pain 89962184 Completed 201206/26/2014 IMPRESSI ON: AFEBRILE , NON-ACUT E ABDOMEN; RECORDED 01/16/20 13 2:28PM BY JOSHUA ARTHUR MA, ANNOTATI ON/ADDEN DUM Otoniel D'Alessan eleazar null, [facility] [place] 5 16:38:25 Acute pharyngi tis 830225135 Completed 201206/26/2014 RECORDED 01/16/20 13 2:28PM BY JOSHUA ATRHUR MA, ANNOTATI ON/ADDEN DUM Otoniel D'Alessan eleazar null, [facility] [place] 5 16:38:25 Patient status finding [id number] Completed 201206/26/2014 RECORDED 01/16/20 13 2:27PM BY JOSHUA ARTHUR MA, ANNOTATI ON/ADDEN DUM Chloe boudreaux [place] null, [facility] [place] 6 15:28:52 Screenin g for malignan t neoplasm of breast Completed 201206/26/2014 RECORDED 01/16/20 13 2:28PM BY JOSHUA ARTHUR MA, JENNIFER ON/ADDEN DUM Otoniel D'Alessan eleazar null, [facility] [place] 5 16:38:26 Cough [id number] Completed 201206/26/2014 RECORDED 01/16/20 13 2:28PM BY JOSHUA ARTHUR MA, JENNIFER ON/ADDEN DUM Otoniel D'Alessan eleazar null, [facility] [place] 5 16:38:25 Cramp in limb 278628820 Completed 201206/26/2014 RECORDED 01/16/20 13 2:28PM BY JOSHUA ARTHUR MA, JENNIFER ON/ADDEN DUM Otoniel D'Alessan eleazar null, [facility] [place] 5 16:38:25 Female genital organ symptoms 726079991 Completed 201206/26/2014 RECORDED 01/16/20 13 2:28PM BY JOSHUA ARTHUR MA, JENNIFER ON/ADDEN DUM Otoniel D'Alessan eleazar null, [facility] [place] 5 16:38:25 Headache 82751711 Completed 201206/26/2014 RECORDED 01/16/20 13 2:27PM BY JOSHUA ARTHUR MA, ANNOTATI ON/ADDEN DUM Otoniel D'Alessan eleazar null, [facility] [place] 5 16:38:25 General symptom 445023907 Completed 201206/26/2014 RECORDED 01/16/20 13 2:28PM BY JOSHUA ARTHUR MA, ANNOTATI ON/ADDEN DUM Otoniel D'Alessan eleazar null, [facility] [place] 5 16:38:25 Knee pain Completed 201206/26/2014 IMPRESSI ON: XRAY C/W BARRETO'S CYST, CAUSING SIGNIFIC ANT FUNCTION AL IMPAIRME NT, X 6 MONTHS; RECORDED 01/16/20 13 2:28PM BY JOSHUA ARTHUR MA, ANNOTATI ON/ADDEN DUM Otoniel D'Alessan eleazar null, [facility] [place] 5 16:38:25 Malaise and fatigue 939232087 Completed 201206/26/2014 RECORDED 01/16/20 13 2:28PM BY JOSHUA ARTHUR MA, ANNOTATI ON/ADDEN DUM Otoniel D'Alessan eleazar null, [facility] [place] 5 16:38:25 Pneumoni a 626846035 Completed 201206/26/2014 RECORDED 01/16/20 13 2:27PM BY JOSHUA ARTHUR MA, ANNOTATI ON/ADDEN DUM Otoniel D'Alessan eleazar null, [facility] [place] 5 16:38:25 Psychoge kristin headache 27671198 Completed 201206/26/2014 RECORDED 01/16/20 13 2:28PM BY JOSHUA ARTHUR MA, ANNOTATI ON/ADDEN DUM Otoniel D'Alessan eleazar null, [facility] [place] 5 16:38:25 Urinary tract infectio us disease 41841700 Completed 201206/26/2014 RECORDED 01/16/20 13 2:27PM BY JOSHUA ARTHUR MA, JENNIFER ON/ADDEN DUM Otoniel D'Alessan eleazar null, [facility] [place] 5 16:38:25 Left lower quadrant pain 843555543 Completed 201206/02/2014 RECORDED 01/16/20 13 2:28PM BY JOSHUA ARTHUR MA, ANNOTATI ON/ADDEN DUM Otoniel D'Alessan eleazar null, [facility] [place] 5 16:38:26 Abdomina l pain 37087003 Completed 201206/02/2014 IMPRESSI ON: AFEBRILE , NON-ACUT E ABDOMEN; RECORDED 01/16/20 13 2:28PM BY JOSHUA ARTHUR MA, ANNOTATI ON/ADDEN DUM Otoniel D'Alessan eleazar null, [facility] [place] 5 16:38:25 Acute pharyngi tis 543767326 Completed 201206/02/2014 RECORDED 01/16/20 13 2:28PM BY JOSHUA ARTHUR MA, ANNOTATI ON/ADDEN DUM Otoniel D'Alessan eleazar null, [facility] [place] 5 16:38:25 Patient status finding [id number] Completed 201206/02/2014 RECORDED 01/16/20 13 2:27PM BY JOSHUA ARTHUR MA ANNOTJOSELO ON/ADDEN DUM ROSY Calles, [facility] [place] 6 15:28:52 Screenin g for malignan t neoplasm of breast Completed 201206/02/2014 RECORDED 01/16/20 13 2:28PM BY JOSHUA ARTHUR MA, ANNOTATI ON/ADDEN DUM Otoniel D'Alessan eleazar null, [facility] [place] 5 16:38:26 Screenin g for malignan t neoplasm of cervix Completed 201206/02/2014 RECORDED 01/16/20 13 2:28PM BY JOSHUA ARTHUR MA, ANNOTATI ON/ADDEN DUM Chloe boudreaux MA null, [facility] [place] 6 15:28:49 Cough [id number] Completed 201206/02/2014 RECORDED 01/16/20 13 2:28PM BY JOSHUA ARTHUR MA, ANNOTATI ON/ADDEN DUM Otoniel D'Alessan eleazar null, [facility] [place] 5 16:38:25 Cramp in limb 211577825 Completed 201206/02/2014 RECORDED 01/16/20 13 2:28PM BY JOSHUA ARTHUR MA, ANNOTATI ON/ADDEN DUM Otoniel D'Alessan eleazar null, [facility] [place] 5 16:38:25 Divertic ulitis of colon 097393396 Completed 201206/02/2014 RECORDED 01/16/20 13 2:28PM BY JOSHUA ARTHUR MA, ANNOTATI ON/ADDEN DUM Chloe boudreaux MA null, [facility] [place] 6 15:28:02 Female genital organ symptoms 178047357 Completed 201206/02/2014 RECORDED 01/16/20 13 2:28PM BY JOSHUA ARTHUR MA, ANNOTATI ON/ADDEN DUM Otoniel D'Alessan eleazar null, [facility] [place] 5 16:38:25 Headache 78765348 Completed 201206/02/2014 RECORDED 01/16/20 13 2:27PM BY JOSHUA ARTHUR MA, ANNOTATI ON/ADDEN DUM Otoniel D'Alessan eleazar null, [facility] [place] 5 16:38:25 General symptom 345345000 Completed 201206/02/2014 RECORDED 01/16/20 13 2:28PM BY JOSHUA ARTHUR MA, ANNOTATI ON/ADDEN DUM Otoniel D'Alessan eleazar null, [facility] [place] 5 16:38:25 Knee pain Completed 201206/02/2014 IMPRESSI ON: XRAY C/W BARRETO'S CYST, CAUSING SIGNIFIC ANT FUNCTION AL IMPAIRME NT, X 6 MONTHS; RECORDED 01/16/20 13 2:28PM BY JOSHUA ARTHUR MA, ANNOTATI ON/ADDEN DUM Otoniel D'Alessan eleazar null, [facility] [place] 5 16:38:25 Malaise and fatigue 037278957 Completed 201206/02/2014 RECORDED 01/16/20 13 2:28PM BY JOSHUA ARTHUR MA, ANNOTATI ON/ADDEN DUM Otoniel Aguayo eleazar null, [facility] [place] 5 16:38:25 Pneumoni a 778558418 Completed 201206/02/2014 RECORDED 01/16/20 13 2:27PM BY JOSHUA ARTHUR MA, ANNOTATI ON/ADDEN DUM Otoniel Aguayo eleazar null, [facility] [place] 5 16:38:25 Psychoge kristin headache 62777639 Completed 201206/02/2014 RECORDED 01/16/20 13 2:28PM BY JOSHUA ARTHUR MA, ANNOTATI ON/ADDEN DUM Otoniel Aguayo eleazar null, [facility] [place] 5 16:38:25 Urinary tract infectio us disease 82975421 Completed 201206/02/2014 RECORDED 01/16/20 13 2:27PM BY JOSHUA ARTHUR MA, ANNOTATI ON/ADDEN DUM Otoniel Aguayo eleazar null, [facility] [place] 5 16:38:25 Adult health examinat ion Completed 201206/25/2014 STORY: FOULKES/ ROUTINE RIBBON HAND/MAMM O UTD; RECORDED 03/11/20 13 1:32PM BY CHLOE BHAKTA MA, ANNOTATI ON/ADDEN DUM ROSY Calles, [facility] [place] 6 15:28:45 Adult health examinat ion Completed 201206/26/2014 STORY: FOULKES/ ROUTINE RIBBON HAND/MAMM O UTD; RECORDED 03/11/20 13 1:32PM BY CHLOE BHAKTA MA, JENNIFER ON/ADDEN DUM Chloe boudreaux MA null, [facility] [place] 6 15:28:45 Adult health examinat ion Completed 201206/02/2014 STORY: FOULKES/ ROUTINE RIBBON HAND/MAMM O UTD; RECORDED 03/11/20 13 1:32PM BY CHLOE BHAKTA MA, ANNOTATI ON/ADDEN DUM Chloe boudreaux MA null, [facility] [place] 6 15:28:45 Mammogra phy abnormal [id number] Completed 201306/25/2014 RECORDED 01/23/20 14 3:36PM BY JOSHUA ARTHUR MA, ANNOTATI ON/ADDEN DUM Otoniel D'Alessan eleazar null, [facility] [place] 5 16:38:26 Follow-u p encounte r Completed 201306/25/2014 RECORDED 01/23/20 14 3:36PM BY JOSHUA ARTHUR MA, ANNOTATI ON/ADDEN DUM Otoniel D'Alessan eleazar null, [facility] [place] 5 16:38:26 Mammogra phy abnormal 684312340 Completed 201306/26/2014 RECORDED 01/23/20 14 3:36PM BY JOSHUA ARTHUR MA, ANNOTATI ON/ADDEN DUM Otoniel D'Alessan eleazar null, [facility] [place] 5 16:38:26 Follow-u p encounte r Completed 201306/26/2014 RECORDED 01/23/20 14 3:36PM BY JOSHUA ARTHUR MA, ANNOTATI ON/ADDEN DUM Otoniel D'Alessan eleazar null, [facility] [place] 5 16:38:26 Mammogra phy abnormal [id number] Completed 201306/02/2014 RECORDED 01/23/20 14 3:36PM BY JOSHUA ARTHUR MA, ANNOTATI ON/ADDEN DUM Otoniel D'Alessan eleazar null, [facility] [place] 5 16:38:26 Anemia 324119495 Completed 201308/27/2025 Audie Moss PA-C [address], [place], [address], [facility] 5 15:42:52 Divertic ulitis of colon 558108898 Active 2013 ROSY Calles, [facility] [place] 6 15:28:02 Follow-u p encounte r Completed 201306/02/2014 RECORDED 01/23/20 14 3:36PM BY JOSHUA ARTHUR [place], ANNOTATI ON/[facility] 16:38[facility] Adult health examinat ion Completed 201310/30/2016 ROSY aClles, [facility] [place] 6 15:28:45 Herpes zoster 6485797 Active 2013 ROSY Calles, [facility] [place] 6 15:28:25 Anxiety disorder 826747401 Completed 201308/27/2025 Audie Moss PA-C [address], [place], [address], [facility] 5 15:42:31 Insomnia 334613180 Completed 201309/22/2019 Removal Reason: RESOLVED 2014 ROSY Alvarez, [facility] [place] 9 15:56:31 Leukopen ia 21760174 Completed 201308/25/2024 Audie Moss PA-C [address], [place], [address], [facility] 4 15:04:19 Neutrope kristin disorder 804812140 Active 2013 hematolo gy ov 01/2019, no followup needed, Dr Brian zarate, [facility] [place] 9 15:06:39 Patient status finding [id number] Completed 201310/30/2016 ROSY Calles, [facility] [place] 6 15:28:52 Administ ration of diphther ia, pertussi s, and tetanus vaccine Completed 201310/30/2016 ROSY Calles, [facility] [place] 6 15:28:39 Function al visual loss 055143008 Completed 201309/22/2019 Removal Reason: ON TWICE Mellissa ROSY Rush, [facility] [place] 9 15:56:55 Screenin g for malignan t neoplasm of cervix Completed 201310/30/2016 ROSY Calles, [facility] [place] 6 15:28:49 Pain in limb 42698880 Completed 201310/30/2016 ROSY Calles, [facility] [place] 6 15:28:58 Hyperlip idemia 40107411 Active 2020 Jaquelin zarate, [facility] [place] 1 23:41:30 COVID-19 279516083 Completed 202108/27/2025 Audie Moss PA-C [address], [place], [address], [facility] 5 15:42:57 Neuropat hy 239451781 Active 2023 Audie Moss PA-C [address], [place], [address], [facility] 4 15:22:23 Prediabe pillo 652936489 Active 2024 Audie Moss PA-C [address], [place], [address], [facility] 5 18:30:16 Snoring 57181592 Active 2024 Audie Moss PA-C [address], [facility] [address], [facility] 5 18:30:22 Pain of left knee joint 50631462932 4107 Active 2024 Audieelpidio Moss PA-C [address], [place], [address], [facility] 5 15:55:49 Problem Notes None recorded. Procedures Surgical History Date Name Laterality Status Provider Name and Address Organization Details Recorded Time 10/06/20 24 Most Recent Mammogram completed Kathleen Grimes [facility] [place] 10/07/2024 08:58:14 10/03/20 23 Ultrasound breast limited completed Kathleen Grimes [facility] [place] 10/04/2023 07:51:52 09/21/20 21 Mammogram Screening completed Mar Allen [facility] [place] 11/02/2021 15:10:25 08/23/20 21 Date of Last Pap Smear completed Mar Allen [facility] [place] 11/10/2021 16:27:30 01/09/20 20 injection completed Susana Dunhama [facility] [place] 01/15/2020 13:09:44 04/08/20 18 Date of Last Colonoscopy completed Ruchiely Marcus [facility] [place] 04/08/2018 14:21:16 04/08/20 18 Colonoscopy completed Ruchiely Marcus [facility] [place], [place] 04/08/2018 14:20:58 11/19/19 10 partial resection of colon completed Jaquelin Caldwell [facility] [place] [place] 09/22/2019 17:07:21 Other completed Hanny Mattson [facility] 10/18/2015 14:23:49 Imaging Results None recorded. Procedure Notes None recorded. Medical Equipment None Reported. Allergies No known drug allergies Medications Name Sig Start Date Stop Date Status Note LastModified by Organization Details LastModified Time amoxicill in 500 mg capsule 06/29/ 2023 10/07 /2024 completed Not Available Not Available Not Available [...] completed RECORDED 12/29/19 11 10:50AM BY OTONIEL CHAVARRIA MD, ANNOTATI ON/AMINTA DUM; Not Available Not Available Not Available [...] 07/21 completed RECORDED 07/21/20 11 9:14AM BY RBOERT SANTOYO MA, OFFICE VISIT; Not Available Not [...] Updated DateTime 5 161.29 cm 29.8 kg/m2 65177.3 g 75 /min 97 % 98.2 [degF] 104/67 mm[Hg] Maddy Liriano MA [facility] [place], [place] 5 15:36:56 Social History Question Answer Notes LastModified by Organizat ion Details LastModified Time Tobacco Smoking Status [facility] 14:22:44 Do You Have An Advance Directive? Yes [employer] Information not available 02/10/2022 Is Blood Transfusion Acceptable In An Emergency? Yes [employer] Information not available 10/20/2016 What Is Your Level Of Caffeine Consumption? Occasional 1-2 Cups Daily Coffee [email or web address] Information not available 02/10/2022 How Much Tobacco Do You Chew? None [employer] Information not available 10/20/2016 What Type Of Diet Are You Following? REGULAR [employer] Information not available 10/20/2016 Which Illicit Or Recreational Drugs Have You Used? None [employer] Information not available 10/20/2016 Live Alone Or With Others? With Others Pt Lives W/ Dtr Age 19other Children Are On Their Own. [employer] Information not available 02/10/2022 Do You Take Precautions To Prevent Distracted Driving? Yes [employer] Information not available 10/20/2016 How Often Do You Need To Have Someone Help You When You Read Instructions, Pamphlets, Or Other Written Material From Your Doctor Or Pharmacy? Never [employer] Information not available 10/20/2016 Have You Served In The ? No [employer] Information not available 10/20/2016 What Was The Date Of Your Most Recent Tobacco Screening? 08/27/2025 [email or web address] Information not available 08/27/2025 How Many Children Do You Have? 3 [employer] Information not available 10/20/2016 Do You Use Protection During Sex? No Information not available 02/10/2022 Do You Use Your Seat Belt Or Car Seat Routinely? Yes Information not available 02/10/2022 Seat Belts Used Routinely Yes Information not available 02/10/2022 Are You Sexually Active? Yes Information not available 02/10/2022 Smoke Alarm In Home Yes Information not available 02/10/2022 Do You Have Smoke And Carbon Monoxide Detectors In Your Home? Yes Information not available 02/10/2022 At What Age Did You Start Smoking Tobacco? 2 [employer]solivanArrive [employer] Information not available 10/30/2016 Are You Passively Exposed To Smoke? No [employer] Information not available 10/20/2016 How Much Tobacco Do You Smoke? No Information not available 10/18/2015 Do You Use Sunscreen Routinely? No ksXylitol [employer] Information not available 10/20/2016 How Many Years Have You Smoked Tobacco? 0 [email or web address] Information not available 10/30/2016 Sex: Unknown Functional Status Question Answer Note LastModified by Organizat ion Details LastModified Time What is your level of alcohol consumption? None [employer]ylitol [employer] Information not available 10/20/2016 Do you or have you ever used smokeless tobacco? Never used smokeless tobacco [email or web address] Information not available 09/22/2019 Are you currently employed? Yes [employer] Information not available 10/20/2016 Are you able to walk independently without assistance or assistive devices? YESWOREST Information not available 02/10/2022 Are you able to care for yourself independently? Yes Information not available 10/18/2015 What is your occupation? [employer] Information not available 10/20/2016 Do you or have you ever used e-cigarettes or vape? Never used electronic cigarettes Information not available 02/10/2022 What is your exercise level? Moderate daily for 1 hour [email or web address] Information not available 02/12/2023 Mental Status None [...] virus, quadrivalent, preservative 6 completed William zarate [facility] [place], [place] 10/20/2016 15:30:52 Influenza, split virus, quadrivalent, preservative 8 completed ROSY Santana [facility] [place], [place] 12/06/2018 13:37:22 Influenza, split virus, quadrivalent, preservative 9 completed ROSY Alvarez [facility] [place], [place] 09/22/2019 15:50:34 Influenza, split virus, quadrivalent, preservative 0 completed Not Available [facility] 11/21/2021 09:00:39 Influenza, MDCK, quadrivalent, PF 8 completed ROSY Alvarez [facility] [place], [place] 10/31/2021 09:41:41 Influenza, split virus, quadrivalent, PF 7 completed ROSY Alvarez [facility] [place], [place] 10/31/2021 09:41:41 Td (adult), 2 Lf tetanus toxoid, preservative free, adsorbed 5 completed Not Available [facility] 06/02/2014 13:22:33 Tdap 4 completed Not Available [facility] 06/02/2014 13:22:33 Past Encounters Encounter ID Performer Location Encounter Start Date Encounter Closed Date Diagnosis/Indication Diagnosis SNOMED-CT Code Diagnosis ICD10 Code Diagnosis IMO Codes Diagnosis Note [id number] Harpal Adames MD Main Office [address] [facility] [address] [facility] [place] [id number] 08/27/2025 15:10:58 08/27/2025 16:12:28 Adult health examination 933290264 Z00.00 mammo & colon utdpending 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 less sugar intake (candy, ice cream, soda/juice , etc), follow a low carb diet and get plenty of aerobic exercise to help you to lose weight. 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 D70.9 hematology ov 01/2019, no followup needed, Dr Woods has been stable, recheck below Snoring 05145098 R06.83 [id number] not seen by sleep med, will try again Screening for malignant neoplasm of cervix 366040159 Z12.4 Body mass index 25-29 - overweight 051733151 E66.3 Z68.29 Pain of le ft knee joint 4686980345 06697 M25.562 150702 minimal djd on xray - cont f/u pmr, pending start PT next weektrial c turmeric qd as well as lars wrap - ambulating better in office p applicatio n of lars wrap Fatigue 97772620 R53.83 [id number] int x past year - negative w/u 6 months ago, including nl tsh, cbc Vitamin D deficiency 347 98932 E55.9 Health Concerns Section Related Observation LastModified by Organization Detai ls LastModified Time None Recorded Concern Status LastModified by Organization Details LastModified Time None Recorded Payers Encounter Date Sequence Insurance Name Policy Number Policy Jesus Covered Member ID Jesus Member ID Guarantor Name 08/27/2025 1 [facility] [id number] 3 Katrin Vera [id number] Katrin Vera Notes Date Note Type Note Provider Name and Address Organization Details Recorded Time 08/27/2025 text/html Generic HPI TemplateReported by Patient here for annual pe. Audie Moss PA-C [address] [address], [place], [address], [facility] 08/28/2025 15:08:28 OBGyn Episode No OBEpisode recorded.
--- OUTSIDE RECORDS SUMMARY | 2025-11-02 21:44 | XMS_ITS | Data Portability ---
Author Organization [facility], Main Office Address [address] [facility] [address] [place] [id number] Care Team Providers Care Drum Handler Name Role Phone [facility] PROCESS PROJECT ENGINEER Referring Provider [phone] OPAL MOSS Primary Care Provider [phone] FAMILY PHYSIATRY Referring Provider [phone] ADA MIXON Philosophy Faculty Member [phone] Assessment No assessment recorded. Plan of Treatment Reminders Order Date Submit Date Provider Last Modified By Organization Details Last Modified Time Details Appointments FOLLOW UP 30MIN 2025 03:30P M Opal Moss PASofi Not available Not available Not available Lab HbA1c (hemog lobin A1c), blood 2024 025 [facility], [address] [facility], [address], [address], 08/27/2025 16:07:19 lipid panel, serum 2024 025 [facility], [address] [facility], [facility], [place], [address], 08/27/2025 16:07:16 CMP, serum or plasma 2024 025 [facility], [address] [facility], [facility], [place], [address], 08/27/2025 16:07:14 TSH, ultra- sensit jose de jesus, serum 2024 025 EL[facility] (Centralized Electronic Ordering - All Locations), Patient Can Go To The Location Of Their Choice, [address] 08/27/2025 16:07:20 CBC w/ auto diff 2024 025 [facility], [address], [address], [place], [address], 08/27/2025 16:07:17 vitami n D, 25-hyd mahendra, total, serum 2024 025 [facility], [address], [place], [address], 08/27/2025 16:07:20 CBC w/ auto diff 2024 025 [email or web address], [address], [address], [place], [address], 08/24/2025 10:42:04 HbA1c (hemog lobin A1c), blood 2024 025 [email or web address], [address], [address], [place], [address], 08/24/2025 10:42:03 lipid panel, serum 2024 025 [email or web address], [address], [address], [place], [address], 08/24/2025 10:42:04 CMP, serum or plasma 2024 025 [email or web address], [address], [address], [place], [address], 08/24/2025 10:42:04 HbA1c (hemog lobin A1c), blood 2024 025 [facility], [address], [place], [address], 02/24/2025 12:06:32 BMP, serum or plasma 2024 025 [facility], [address], [place], [address], 02/24/2025 12:06:31 HbA1c (hemog lobin A1c), blood 2023 [facility], [address], [address], [place], [address], 09/01/2024 18:06:13 vitami n B12, serum 2023 [facility], [address], [place], [address], 09/01/2024 18:06:17 folate , serum 2023 [facility], [address], [place], [address], 09/01/2024 18:06:14 ferrit in, serum or plasma 2023 [facility], [address], [place], [address], 09/01/2024 18:06:18 CBC w/ auto diff 2023 024 [facility], [address], [place], [address], 09/01/2024 18:06:09 TIBC (total iron-b inding capaci ty), serum 2023 [facility], [address], [place], [address], 09/01/2024 18:06:12 methyl malona te, QN, serum or plasma 2023 024 [facility], [address], [address], [place], [address], 09/01/2024 18:06:16 Hepati tis C IgG Ab, qual, serum 2023 [facility], [address], [address], [place], [address], 09/01/2024 18:06:13 lipid panel, serum 2023 [facility], [address], [address], [place], [address], 09/01/2024 18:06:11 CMP, serum or plasma 2023 [facility], [address], [address], [place], [address], 09/01/2024 18:06:10 TSH, ultra- sensit jose de jesus, serum 2023 [facility], [address], [address], [place], [address], 09/01/2024 18:06:15 Referral gyneco logist referr joe pak to schedu le 2024 025 [email or web address] Not available 08/27/2025 16:12:28 sleep medici ne referr al 2024 025 [facility], [address] [place] [address], [address], 08/28/2025 10:49:19 nutrit ionist /dieti moody referr al 2024 025 [email or web address] Not available 08/28/2025 10:43:49 sleep medici ne referr al 2024 025 [email or web address], [address] [place] [address], [address], 08/24/2025 10:42:24 physic al medici ne and rehabi litati on referr al 2024 025 ELBA Ivory MD, [address] [place] [address], [place] [address], [place], [address], 06/11/2025 16:49:27 nutrit ionist /dieti moody referr al 2023 024 [email or web address] Not available 08/25/2024 15:30:24 Procedures None record ed. Surgeries None record ed. Imaging XR, lumbar spine 2024 025 [email or web address] [facility], [facility] [place], [address], 02/25/2025 11:09:07 Medication Orders gabape ntin 100 mg capsul e 2024 025 [email or web address] [facility], [address] [place] [address], [address], 08/27/2025 15:37:23 Patient TargetsNo targets recorded. Patient Instructions Encounter Date Encounter Id Patient Instructions Last Modified By Organization Details Last Modified Time 08/25/2024 [id number] A healthy lifestyle: care instructions pmadden Not available 08/25/2024 15:13:41 Well Visit, Ages 18 to 65: Care Instructions pmadden Not available 08/25/2024 15:13:40 Starting a Weight-Loss Plan: Care Instructions pmadden Not available 08/25/2024 15:13:41 Medications (OTC , herbal therapies, supplements) reviewed and reconciled with patient and or caregiver, including potential side effects, drug interactions, instructions, and the consequences of not taking medication. Reviewed potential barriers to medication adherence, such as side effects from medication or cost of medication. pmadden Not available 08/25/2024 15:10:18 02/23/2025 [id number] Medications (OTC , herbal therapies, supplements) reviewed and reconciled with patient and or caregiver, including potential side effects, drug interactions, instructions, and the consequences of not taking medication. Reviewed potential barriers to medication adherence, such as side effects from medication or cost of medication. pmadden Not available 02/24/2025 18:30:33 05/19/2025 [id number] take gabapentin at night x 3 nights, then twice daily x 3 days, then 3 times daily pmadden Not available 05/19/2025 09:58:00 Patient will follow up and keep appointment as scheduled. pmadden Not available 05/19/2025 09:41:29 08/27/2025 [id number] knee pain or injury: care instructions pmadden [...] of medication. pmadden Not available 08/27/2025 16:06:58 10/12/2025 [id number] encouraged pt to check outstanding labs as [...] Not available 10/12/2025 15:55:24 Reason for Referral Piano Professor/dietitian Refer ral for Body mass index 30+ - obesity Referring Physician: Opal Moss, Internal Medicine, Encounter Date: 08/25/2024 Physical Medicine And Rehabi litation Referral for Neuropathy Referring Physician: Opal Moss Internal Medicine, Encounter Date: 02/23/2025 Sleep Medicine Referral for Snoring Referring Physician: Opal Moss Internal Medicine, Encounter Date: 02/23/2025 Administrative Fellow Referral for Sc reening for malignant neoplasm of cervix Patient to schedule Referring Physician: Opal Moss Internal Medicine, Encounter Date: 08/27/2025 Piano Professor/dietitian Refer ral for Body mass index 25-29 - overweight Referring Physician: Opal Moss, Internal Medicine, Encounter Date: 08/27/2025 Sleep Medicine Referral for Snoring Referring Physician: Opal Moss, Internal Medicine, Encounter Date: 08/27/2025 Results Created Date Observation Date Name Description Value Unit Range Abnormal Flag Note LastModifiedBy Organization Detail LastModifiedTime 08/26/2008/27/2024 CBC WITH DIFFE RENTI AL/PL ATELE T WBC 2.4 x10e3 /uL 3.4-10 .8 alert low Not Available [facility] ([facility]) [address] [place], [address], 09/01/2024 18:06:09 08/26/20 24 08/27/2024 CBC WITH DIFFE RENTI AL/PL ATELE T RBC 4.23 x10e6 /uL 3.77-5 .28 normal Not Available [facility] ([facility]) [address] [place], [address], 09/01/2024 18:06:09 08/26/20 24 08/27/2024 CBC WITH DIFFE RENTI AL/PL ATELE T hemoglobin 13.0 g/dL 11.1-1 5.9 normal Not Available [facility] ([facility]) [address] [place], [address], 09/01/2024 18:06:09 08/26/20 24 08/27/2024 CBC WITH DIFFE RENTI AL/PL ATELE T hematocrit 39.7 % 34.0-4 6.6 normal Not Available [facility] ([facility]) [address] [place], [address], 09/01/2024 18:06:09 08/26/20 24 08/27/2024 CBC WITH DIFFE RENTI AL/PL ATELE T MCV 94 fL 79-97 normal Not Available [facility] ([facility]) [address] [place], [address], 09/01/2024 18:06:09 08/26/20 24 08/27/2024 CBC WITH DIFFE RENTI AL/PL ATELE T MCH 30.7 pg 26.6-3 3.0 normal Not Available [facility] ([facility]) [address] [facility], [place], [address], 09/01/2024 18:06:09 08/26/20 24 08/27/2024 CBC WITH DIFFE RENTI AL/PL ATELE T MCHC 32.7 g/dL 31.5-3 5.7 normal Not Available [facility] ([facility]) [address] [facility], [place], [address], 09/01/2024 18:06:09 08/26/2008/27/2024 CBC WITH DIFFE RENTI AL/PL ATELE T RDW 12.7 % 11.7-1 5.4 Not Available [facility] ([facility]) [address] [facility], [place], [address], 09/01/2024 18:06:09 08/26/20 24 08/27/2024 CBC WITH DIFFE RENTI AL/PL ATELE T platelets 265 x10e3 /uL 150-45 0 normal Not Available [facility] ([facility]) [address] [facility], [place], [address], 09/01/2024 18:06:09 08/26/20 24 08/27/2024 CBC WITH DIFFE RENTI AL/PL ATELE T neutrophils 41 % not estab. normal Not Available [facility] ([facility]) [address] [place], [address], 09/01/2024 18:06:09 08/26/2008/27/2024 CBC WITH DIFFE RENTI AL/PL ATELE T lymphs 48 % not estab. normal Not Available [facility] ([facility]) [address] [place], [address], 09/01/2024 18:06:09 08/26/2008/27/2024 CBC WITH DIFFE RENTI AL/PL ATELE T monocytes 9 % not estab. normal Not Available [facility] ([facility]) [address] [facility], [place], [address], 09/01/2024 18:06:09 08/26/20 24 08/27/2024 CBC WITH DIFFE RENTI AL/PL ATELE T eos 2 % not estab. normal Not Available [facility] ([facility]) [address] [facility], [place], [address], 09/01/2024 18:06:09 08/26/2008/27/2024 CBC WITH DIFFE RENTI AL/PL ATELE T basos 0 % not estab. normal Not Available [facility] ([facility]) [address] [facility], [place], [address], 09/01/2024 18:06:09 08/26/2008/27/2024 CBC WITH DIFFE RENTI AL/PL ATELE T immature cells SHAREPOINT ENGINEER Not Available [facility] ([facility]) [address] [facility], [place], [address], 09/01/2024 18:06:09 08/26/20 24 08/27/2024 CBC WITH DIFFE RENTI AL/PL ATELE T neutrophils (absolute) 1.0 x10e3 /uL 1.4-7. 0 below low normal Not Available [facility] ([facility]) [address] [facility], [place], [address], 09/01/2024 18:06:09 08/26/20 24 08/27/2024 CBC WITH DIFFE RENTI AL/PL ATELE T lymphs (absolute) 1.2 x10e3 /uL 0.7-3. 1 normal Not Available [facility] ([facility]) [address] [facility], [place], [address], 09/01/2024 18:06:09 08/26/20 24 08/27/2024 CBC WITH DIFFE RENTI AL/PL ATELE T monocytes(ab solute) 0.2 x10e3 /uL 0.1-0. 9 normal Not Available [facility] ([facility]) [address] [facility], [place], [address], 09/01/2024 18:06:09 08/26/20 24 08/27/2024 CBC WITH DIFFE RENTI AL/PL ATELE T eos (absolute) 0.0 x10e3 /uL 0.0-0. 4 normal Not Available [facility] ([facility]) [address] [facility], [place], [address], 09/01/2024 18:06:09 08/26/20 24 08/27/2024 CBC WITH DIFFE RENTI AL/PL ATELE T baso (absolute) 0.0 x10e3 /uL 0.0-0. 2 normal Not Available [facility] ([facility]) [address] [facility], [place], [address], 09/01/2024 18:06:09 08/26/20 24 08/27/2024 CBC WITH DIFFE RENTI AL/PL ATELE T immature granulocytes 0 % not estab. Not Available [facility] ([facility]) [address] [facility], [place], [address], 09/01/2024 18:06:09 08/26/20 24 08/27/2024 CBC WITH DIFFE RENTI AL/PL ATELE T immature grans (abs) 0.0 x10e3 /uL 0.0-0. 1 Not Available [facility] ([facility]) [address] [facility], [place], [address], 09/01/2024 18:06:09 08/26/20 24 08/27/2024 CBC WITH DIFFE RENTI AL/PL ATELE T NRBC SHAREPOINT ENGINEER Not Available [facility] ([facility]) [address] [facility], [place], [address], 09/01/2024 18:06:09 08/26/20 24 08/27/2024 CBC WITH DIFFE KALIA AL/PL ALPHONSOLE T hematology comments: SHAREPOINT ENGINEER Not Available [facility] ([facility]) [address] [facility], [place], [address], 09/01/2024 18:06:09 08/26/20 24 08/27/2024 COMP. METAB OLIC PANEL (14) glucose 87 mg/dL 70-99 normal Not Available [facility] ([facility]) [address] [facility], [place], [address], 09/01/2024 18:06:10 08/26/20 24 08/27/2024 COMP. METAB OLIC PANEL (14) BUN 18 mg/dL 6-24 normal Not Available [facility] ([facility]) [address] [facility], [place], [address], 09/01/2024 18:06:10 08/26/20 24 08/27/2024 COMP. METAB OLIC PANEL (14) creatinine 0.99 mg/dL 0.57-1 .00 normal Not Available [facility] ([facility]) [address] [facility], [place], [address], 09/01/2024 18:06:10 08/26/20 24 08/27/2024 COMP. METAB OLIC PANEL (14) eGFR 67 mL/mi n/1.7 3 >59 normal Not Available [facility] ([facility]) [address] [facility], [place], [address], 09/01/2024 18:06:10 08/26/20 24 08/27/2024 COMP. METAB OLIC PANEL (14) BUN/creatini ne ratio 18 9-23 normal Not Available [facility] ([facility]) [address] [facility], [place], [address], 09/01/2024 18:06:10 08/26/20 24 08/27/2024 COMP. METAB OLIC PANEL (14) sodium 141 mmol/ L 134-14 4 normal Not Available [facility] ([facility]) [address] [place], [address], 09/01/2024 18:06:10 08/26/20 24 08/27/2024 COMP. METAB OLIC PANEL (14) potassium 4.5 mmol/ L 3.5-5. 2 normal Not Available [facility] ([facility]) [address] [place], [address], 09/01/2024 18:06:10 08/26/20 24 08/27/2024 COMP. METAB OLIC PANEL (14) chloride 105 mmol/ L 96-106 normal Not Available [facility] ([facility]) [address] [facility] [place], [address], 09/01/2024 18:06:10 08/26/20 24 08/27/2024 COMP. METAB OLIC PANEL (14) carbon dioxide, total 20 mmol/ L 20-29 normal Not Available [facility] ([facility]) [address] [facility] [place], [address], 09/01/2024 18:06:10 08/26/20 24 08/27/2024 COMP. METAB OLIC PANEL (14) calcium 9.5 mg/dL 8.7-10 .2 normal Not Available [facility] ([facility]) [address] [facility] [place], [address], 09/01/2024 18:06:10 08/26/20 24 08/27/2024 COMP. METAB OLIC PANEL (14) protein, total 7.8 g/dL 6.0-8. 5 normal Not Available [facility] ([facility]) [address] [facility] [place], [address], 09/01/2024 18:06:10 08/26/20 24 08/27/2024 COMP. METAB OLIC PANEL (14) albumin 4.5 g/dL 3.8-4. 9 normal Not Available [facility] ([facility]) [address] [facility], [place], [address], 09/01/2024 18:06:10 08/26/20 24 08/27/2024 COMP. METAB OLIC PANEL (14) globulin, total 3.3 g/dL 1.5-4. 5 Not Available [facility] ([facility]) [address] [facility] [place], [address], 09/01/2024 18:06:10 08/26/2008/27/2024 COMP. METAB OLIC PANEL (14) bilirubin, total 0.6 mg/dL 0.0-1. 2 normal Not Available [facility] ([facility]) [address] [facility] [place], [address], 09/01/2024 18:06:10 08/26/20 24 08/27/2024 COMP. METAB OLIC PANEL (14) alkaline phosphatase 74 IU/L 44-121 normal Not Available [facility] ([facility]) [address] [facility] [place], [address], 09/01/2024 18:06:10 08/26/20 24 08/27/2024 COMP. METAB OLIC PANEL (14) AST (SGOT) 18 IU/L 0-40 normal Not Available [facility] ([facility]) [address] [facility] [place], [address], 09/01/2024 18:06:10 08/26/2008/27/2024 COMP. METAB OLIC PANEL (14) ALT (SGPT) 13 IU/L 0-32 normal Not Available [facility] ([facility]) [address] [facility] [place], [address], 09/01/2024 18:06:10 08/26/20 24 08/27/2024 LIPID PANEL cholesterol, total 259 mg/dL 100-19 9 above high normal Not Available [facility] ([facility]) [address] [facility] [place], [address], 09/01/2024 18:06:11 08/26/2008/27/2024 LIPID PANEL triglyceride s 98 mg/dL 0-149 normal Not Available [facility] ([facility]) [address] [place], [address], 09/01/2024 18:06:11 08/26/2008/27/2024 LIPID PANEL HDL cholesterol 64 mg/dL >39 normal Not Available [facility] ([facility]) [address] [place], [address], 09/01/2024 18:06:11 08/26/2008/27/2024 LIPID PANEL VLDL cholesterol danielle 17 mg/dL 5-40 Not Available [facility] ([facility]) [address] [place], [address], 09/01/2024 18:06:11 08/26/2008/27/2024 LIPID PANEL LDL chol calc ([facility]) 178 mg/dL 0-99 above high normal Not Available [facility] ([facility]) [address] [place], [address], 09/01/2024 18:06:11 08/26/2008/27/2024 LIPID PANEL LDL calc comment: SHAREPOINT ENGINEER Not Available [facility] ([facility]) [address] [place], [address], 09/01/2024 18:06:11 08/26/2008/27/2024 IRON AND TIBC iron bind.cap.(TI BC) 277 ug/dL 250-45 0 normal Not Available [facility] ([facility]) [address] [place], [address], 09/01/2024 18:06:12 08/26/2008/27/2024 IRON AND TIBC UIBC 178 ug/dL 131-42 5 normal Not Available [facility] ([facility]) [address] [place], [address], 09/01/2024 18:06:12 08/26/2008/27/2024 IRON AND TIBC iron 99 ug/dL 27-159 normal Not Available [facility] ([facility]) [address] [facility], [place], [address], 09/01/2024 18:06:12 08/26/20 24 08/27/2024 IRON AND TIBC iron saturation 36 % 15-55 normal Not Available [facility] ([facility]) [address] [facility], [place], [address], 09/01/2024 18:06:12 08/26/2008/27/2024 HCV ANTIB WILLIAM RFX TO QUANT PCR HCV Ab NON REACTI VE non reacti ve Not Available [facility] ([facility]) [address] [facility], [place], [address], 09/01/2024 18:06:13 08/26/2008/27/2024 HCV ANTIB WILLIAM RFX TO QUANT PCR interpretati on: COMMEN T Not infec montez with HCV unles s early or acute infec tion is suspe cted (whic h may be delay ed in an immun ocomp romis ed indiv idual ), or other evide nce exist s to indic ate HCV infec tion. Not Available [facility] ([facility]) [address] [facility], [place], [address], 09/01/2024 18:06:13 08/26/2008/27/2024 HEMOG LOBIN A1C hemoglobin A1C 5.9 % 4.8-5. 6 above high normal Predi abete s: 5.7 - 6.4 Diabe pillo: >6.4 Glyce susan contr ol for adult s with diabe pillo: <7.0 Not Available [facility] ([facility]) [address] [facility], [place], [address], 09/01/2024 18:06:13 08/26/20 24 08/27/2024 FOLAT E (FOLI C ACID) , SERUM folate (folic acid), serum 16.4 NG/mL >3.0 normal A serum folat e eliazar ntrat ion of less than 3.1 ng/mL is consi dered to repre sent clini danielle defic iency . Not Available [facility] ([facility]) [address] [place], [address], 09/01/2024 18:06:14 08/26/20 24 08/27/2024 TSH RFX ON ABNOR MAL TO FREE T4 TSH 1.120 uIU/m L 0.450- 4.500 normal Not Available [facility] ([facility]) [address] [place], [address], 09/01/2024 18:06:15 08/26/20 24 09/01/2024 METHY LMALO KRISTIN ACID, SERUM methylmaloni c acid, serum 107 nmol/ L 0-378 Not Available [facility] ([facility]) [address] [place], [address], 09/01/2024 18:06:16 08/26/20 24 08/27/2024 VITAM IN B12 vitamin B12 1036 pg/mL 232-12 45 normal Not Available [facility] ([facility]) [address] [place], [address], 09/01/2024 18:06:17 08/26/20 24 08/27/2024 AJ TIN ferritin 92 NG/mL 15-150 normal Not Available [facility] ([facility]) [address] [place], [address], 09/01/2024 18:06:18 02/24/20 25 02/24/2025 BASIC METAB OLIC PANEL (8) glucose 90 mg/dL 70-99 normal Not Available [facility] ([facility]) [address] [place], [address], 02/24/2025 12:06:31 02/24/20 25 02/24/2025 BASIC METAB OLIC PANEL (8) BUN 19 mg/dL 6-24 normal Not Available [facility] ([facility]) [address] [place] [place], [address], 02/24/2025 12:06:31 02/24/20 25 02/24/2025 BASIC METAB OLIC PANEL (8) creatinine 1.02 mg/dL 0.57-1 .00 above high normal Not Available [facility] ([facility]) [address] [facility] [place], [address], 02/24/2025 12:06:31 02/24/20 25 02/24/2025 BASIC METAB OLIC PANEL (8) eGFR 64 mL/mi n/1.7 3 >59 normal Not Available [facility] ([facility]) [address] [place] [place], [address], 02/24/2025 12:06:31 02/24/20 25 02/24/2025 BASIC METAB OLIC PANEL (8) BUN/creatini ne ratio 19 9-23 normal Not Available [facility] ([facility]) [address] [place] [place], [address], 02/24/2025 12:06:31 02/24/20 25 02/24/2025 BASIC METAB OLIC PANEL (8) sodium 142 mmol/ L 134-14 4 normal Not Available [facility] ([facility]) [address] [place], [address], 02/24/2025 12:06:31 02/24/20 25 02/24/2025 BASIC METAB OLIC PANEL (8) potassium 4.5 mmol/ L 3.5-5. 2 normal Not Available [facility] ([facility]) [address] [place], [address], 02/24/2025 12:06:31 02/24/20 25 02/24/2025 BASIC METAB OLIC PANEL (8) chloride 103 mmol/ L 96-106 normal Not Available [facility] ([facility]) [address] [facility], [place], [address], 02/24/2025 12:06:31 02/24/20 25 02/24/2025 BASIC METAB OLIC PANEL (8) carbon dioxide, total 22 mmol/ L 20-29 normal Not Available [facility] ([facility]) [address] [facility], [place], [address], 02/24/2025 12:06:31 02/24/20 25 02/24/2025 BASIC METAB OLIC PANEL (8) calcium 10.2 mg/dL 8.7-10 .2 normal Not Available [facility] ([facility]) [address] [facility], [place], [address], 02/24/2025 12:06:31 02/24/20 25 02/24/2025 HEMOG LOBIN A1C hemoglobin A1C 5.7 % 4.8-5. 6 above high normal Predi abete s: 5.7 - 6.4 Diabe pillo: >6.4 Glyce susan contr ol for adult s with diabe pillo: <7.0 Not Available [facility] ([facility]) [address] [facility], [place], [address], 02/24/2025 12:06:31 10/06/20 24 10/06/2024 MAMMO , scree deyanira, bilat eral No observ ation record ed. [facility] [address], [place], [address], 02/23/2025 16:46:31 10/06/20 24 10/06/2024 MAMMO , scree deyanira, digit al, bilat eral PROCED URE: MM Digita l Mammo Screen ing INDICA TION: Screen ing for breast cancer . No known palpab le abnorm alitie s. COMPAR GLENN: Prior mammog marla most recent ly dated 2022. TECHNI QUE: Full-f ield digita l CC and MLO 3D tomosy nthesi s images of both breast s were acquir ed. Comput er-aid ed detect ion (CAD) was utiliz ed in the interp retati on of this study. DENSIT Y: There are scatte red areas of fibrog landul ar densit y. FINDIN GS: No suspic ious masses , suspic ious microc alcifi cation s, or areas of brenda ectura l distor tion are seen in either breast to sugges t malign franklin. IMPRES ALEJANDRO: No mammog raphic eviden ce of malign franklin. RECOMM ENDATI ON: Annual mammog raphic screen ing BI-RAD S: 1 (Negat jose de jesus) Lay letter mailed to taj pak WSN: [id number] Orderi ng Physic stephen: Cuba Moss Dictat ed By: Nohemi Villarreal MD Dictat ed Date/T laurence: 2:23 pm Review ed By: Nohemi Villarreal MD Signed By: Nohemi Villarreal MD Signed Date/T laurence: 2:23 pm Transc ribed By: CSB Transc riptio n Date/T laurence: 2:20 pm Birads : Taj pak Class: Outpat ient [facility] (Outpt [facility]) [address] , [place], [address], 02/23/2025 16:46:30 10/07/20 24 10/06/2024 MAMMO , scree deyanira, bilat eral No observ ation record ed. [facility] [address], [place], [address], 02/23/2025 16:46:31 02/24/20 25 02/23/2025 XR, lumba r spine Lumbar Spine 2 or 3 Views Reason : polyne uropat hy COMPAR GLENN: None. FINDIN GS: No bone lesion s or fractu res. Dispos ition are noted at L5-S1. Facet arthro cathie in the lower lumbar spine. Normal alignm ent. No spondy lolysi s or spondy lolist hesis. Intrau terine device projec ts in the mid pelvis . IMPRES ALEJANDRO: Degene rative change s but no eviden ce of an acute proces s. WSN: [id number] Orderi ng Physic stephen: Cuba Moss Dictat ed By: Robb Chen MD Dictat ed Date/T laurence: 7:22 pm Review ed By: Robb Chen MD Signed By: Robb Chen MD Signed Date/T laurence: 7:22 pm Transc ribed By: CSB Transc ribed Date/T laurence: 7:21 pm Patien t [facility] [address] , [place], [address], 05/19/2025 09:40:56 02/25/2002/23/2025 XR, lumba r spine A D D E N D U M as of: [id number] The lumbar spine report should state degene rative change s noted at L5-S1. WSN: [id number] Orderi ng Physic stephen: Cuba Moss Dictat ed By: Robb Chen MD Dictat ed Date/T laurence: 6:01 pm Review ed By: Robb Chen MD Signed By: Robb Chen MD Signed Date/T laurence: 6:01 pm Transc ribed By: MATTB Transc ribed Date/T laurence: 6:01 pm Lumbar Spine 2 or 3 Views Reason : polyne uropat hy COMPAR GLENN: None. FINDIN GS: No bone lesion s or fractu res. Dispos ition are noted at L5-S1. Facet arthro cathie in the lower lumbar spine. Normal alignm ent. No spondy lolysi s or spondy lolist hesis. Intrau terine device projec ts in the mid pelvis . IMPRES ALEJANDRO: Degene rative change s but no eviden ce of an acute proces s. WSN: [id number] Orderi ng Physic stephen: Cuba Moss Dictat ed By: Robb Chen MD Dictat ed Date/T laurence: 7:22 pm Review ed By: Robb Chen MD Signed By: Robb Chen MD Signed Date/T laurence: 7:22 pm Transc ribed By: ABHISHEK Transc ribed Date/T laurence: 7:21 pm Patien t Class: Outpat ient [facility] (Outpt Imaging) [address] , [place], [address], 05/19/2025 09:37:54 08/26/2008/21/2025 XR, knee No observ ation record ed. [facility] [place] [address], [place], [address], 08/27/2025 15:48:40 Result Notes Documentation Provider Name and Address Organization Details Recorded Time Mammo, Screening, Digital, Bilateral : PROCEDURE: MM Digital Mammo Screening INDICATION: Screening for breast cancer. No known palpable abnormalities. COMPARISON: Prior mammograms most recently dated 10/03/2023. TECHNIQUE: Full-field digital CC and MLO 3D tomosynthesis images of both breasts were acquired. Computer-aided detection (CAD) was utilized in the interpretation of this study. DENSITY: There are scattered areas of fibroglandular density. FINDINGS: No suspicious masses, suspicious microcalcifications, or areas of architectural distortion are seen in either breast to suggest malignancy. IMPRESSION: No mammographic evidence of malignancy. RECOMMENDATION: Annual mammographic screening BI-RADS: 1 (Negative) Lay letter mailed to patient WSN: [id number] Ordering Physician: Opal Moss Dictated By: Alicia Villarreal MD Dictated Date/Time: 10/06/24 2:23 pm Reviewed By: Alicia Villarreal MD Signed By: Alicia Villarreal MD Signed Date/Time: 10/06/24 2:23 pm Transcribed By: ABHISHEK Community Fundraiser Date/Time: 10/06/24 2:20 pm Birads: Patient Class: Outpatient Opal Moss PA-C [address] [facility] [address], [place], [address], [facility] 02/23/2025 16:46:30 Xr, Lumbar Spine : Lumbar Spine 2 or 3 Views Reason: polyneuropathy COMPARISON: None. FINDINGS: No bone lesions or fractures. Disposition are noted at L5-S1. Facet arthropathy in the lower lumbar spine. Normal alignment. No spondylolysis or spondylolisthesis. Intrauterine device projects in the mid pelvis. IMPRESSION: Degenerative changes but no evidence of an acute process. WSN: [id number] Ordering Physician: Opal Moss Dictated By: Robb Chen MD Dictated Date/Time: 02/23/25 7:22 pm Reviewed By: Robb Chen MD Signed By: Robb Chen MD Signed Date/Time: 02/23/25 7:22 pm Transcribed By: ABHISHEK Transcribed Date/Time: 02/23/25 7:21 pm Patient Class: Outpatient Opal Moss PA-C [address], [address], [facility] [place] 05/19/2025 09:40:56 Xr, Lumbar Spine : A D D E N D U M as of: [id number] The lumbar spine report should state degenerative changes noted at L5-S1. WSN: [id number] Ordering Physician: Opal Moss Dictated By: Robb Chen MD Dictated Date/Time: 02/24/25 6:01 pm Reviewed By: Robb Chen MD Signed By: Robb Chen MD Signed Date/Time: 02/24/25 6:01 pm Transcribed By: ABHISHEK Transcribed Date/Time: 02/24/25 6:01 pm Lumbar Spine 2 or 3 Views Reason: polyneuropathy COMPARISON: None. FINDINGS: No bone lesions or fractures. Disposition are noted at L5-S1. Facet arthropathy in the lower lumbar spine. Normal alignment. No spondylolysis or spondylolisthesis. Intrauterine device projects in the mid pelvis. IMPRESSION: Degenerative changes but no evidence of an acute process. WSN: [id number] Ordering Physician: Opal Moss Dictated By: Robb Chen MD Dictated Date/Time: 02/23/25 7:22 pm Reviewed By: Robb Chen MD Signed By: Robb Chen MD Signed Date/Time: 02/23/25 7:22 pm Transcribed By: ABHISHEK Transcribed Date/Time: 02/23/25 7:21 pm Patient Class: Outpatient Opal Moss PA-C [address] [address], [place], [address], [facility] 05/19/2025 09:37:54 Problems Name Problem SNOMED Code Status Onset Date Resolution Date Notes Provider Name and Address Organization Details Recorded Time Visual impairme nt 711504338 Completed 08/27/2025 Opal Moss PA-C [address] [facility] [address], [place], [address], [facility] 5 15:42:37 Generali zed abdomina l pain [id number] Completed 200706/25/2014 RECORDED 08/10/20 08 1:22PM BY ANA HALLMANATI ON/ADDEN DUM Otoniel Shanita'Alessan eleazar null, [facility] 5 16:38:26 Right lower quadrant pain 353622695 Completed 200706/25/2014 RECORDED 08/10/20 08 1:22PM BY ANA HALLMANATI ON/ADDEN DUM Otoniel Shanita'Alessan eleazar null, [facility] 5 16:38:26 Bronchos pasm [id number] Completed 200706/25/2014 RECORDED 08/10/20 08 1:22PM BY JENNIFER HALLMAN ON/ADDEN DUM Otoniel Shanita'Alessan eleazar null, [facility] 5 16:38:25 General examinat ion of patient Completed 200706/25/2014 RECORDED 08/10/20 08 1:22PM BY JENNIFER HALLMAN ON/ADDEN DUM Otoniel D'Alessan eleazar null, [facility] 5 16:38:26 Generali zed abdomina l pain 128158713 Completed 200706/26/2014 RECORDED 08/10/20 08 1:22PM BY MA LOI A ÁLVAREZ, ANNOTATI ON/ADDEN DUM Otoniel D'Alessan eleazar null, [facility] 5 16:38:26 Right lower quadrant pain 513276971 Completed 200706/26/2014 RECORDED 08/10/20 08 1:22PM BY ROSY ÁLVAREZ, ANNOTATI ON/ADDEN DUM Otoniel D'Alessan eleazar null, [facility] 5 16:38:26 Bronchos pasm [id number] Completed 200706/26/2014 RECORDED 08/10/20 08 1:22PM BY ROSY ÁLVAREZ, ANNOTATI ON/ADDEN DUM Otoniel D'Alessan eleazar null, [facility] 5 16:38:25 General examinat ion of patient Completed 200706/26/2014 RECORDED 08/10/20 08 1:22PM BY ROSY ÁLVAREZ, ANNOTATI ON/ADDEN DUM Otoniel D'Alessan eleazar null, [facility] 5 16:38:26 Generali zed abdomina l pain [id number] Completed 200706/02/2014 RECORDED 08/10/20 08 1:22PM BY ROSY ÁLVAREZ, ANNOTATI ON/ADDEN DUM Otoniel D'Alessan eleazar null, [facility] 5 16:38:26 Right lower quadrant pain 436672256 Completed 200706/02/2014 RECORDED 08/10/20 08 1:22PM BY ROSY ÁLVAREZ, ANNOTATI ON/ADDEN DUM Otoniel D'Alessan eleazar null, [facility] 5 16:38:26 Bronchos pasm [id number] Completed 200706/02/2014 RECORDED 08/10/20 08 1:22PM BY ROSY ÁLVAREZ, ANNOTATI ON/ADDEN DUM Otoniel D'Alessan eleazar null, [facility] 5 16:38:25 General examinat ion of patient Completed 200706/02/2014 RECORDED 08/10/20 08 1:22PM BY ROSY ÁLVAREZ, ANNOTATI ON/ADDEN DUM Otoniel D'Alessan eleazar null, [facility] 5 16:38:26 Screenin g for malignan t neoplasm of colon Completed 200806/25/2014 RECORDED 04/16/20 09 10:12AM BY HEENA BHAKTA MA, ANNOTATI ON/ADDEN DUM Otoniel D'Alessan eleazar null, [facility] 5 16:38:26 Screenin g for malignan t neoplasm of colon Completed 200806/26/2014 RECORDED 04/16/20 09 10:12AM BY HEENA BHAKTA MA, ANNOTATI ON/ADDEN DUM Otoniel D'Alessan eleazar null, [facility] 5 16:38:26 Screenin g for malignan t neoplasm of colon Completed 200806/02/2014 RECORDED 04/16/20 09 10:12AM BY HEENA BHAKTA MA, ANNOTATI ON/ADDEN DUM Otoniel D'Alessan eleazar null, [facility] 5 16:38:26 Influenz a vaccine needed [id number] 06 Completed 201006/25/2014 RECORDED 09/08/20 11 9:40AM BY HEENA BHAKTA MA, OFFICE VISIT Otoniel zarate, [facility] 5 16:38:26 Influenz a vaccine needed 90099140909 06 Completed 201006/26/2014 RECORDED 09/08/20 11 9:40AM BY HEENA BHAKTA MA, OFFICE VISIT Otoniel zarate, [facility] 5 16:38:26 Influenz a vaccine needed 80952021361 06 Completed 201006/02/2014 RECORDED 09/08/20 11 9:40AM BY HEENA BHAKTA MA, OFFICE VISIT Otoniel zarate, [facility] 5 16:38:26 Left lower quadrant pain 567716800 Completed 201206/25/2014 RECORDED 01/16/20 13 2:28PM BY JOSHUA ARTHUR MA, ANNOTATI ON/ADDEN DUM Otoniel Shanita'Alessan eleazar null, [facility] 5 16:38:26 Abdomina l pain 25317015 Completed 201206/25/2014 IMPRESSI ON: AFEBRILE , NON-ACUT E ABDOMEN; RECORDED 01/16/20 13 2:28PM BY JOSHUA ARTHUR MA, ANNOTATI ON/ADDEN DUM Otoniel Diehl'Alessan eleazar null, [facility] 5 16:38:25 Acute pharyngi tis 101512379 Completed 201206/25/2014 RECORDED 01/16/20 13 2:28PM BY JOSHUA ARTHUR MA, ANNOTATI ON/ADDEN DUM Otoniel Shanita'Alessan eleazar null, [facility] 5 16:38:25 Patient status finding [id number] Completed 201206/25/2014 RECORDED 01/16/20 13 2:27PM BY JOSHUA ARTHUR MA, ANNOTATI ON/ADDEN DUM Heena boudreaux MA null, [facility] 6 15:28:52 Screenin g for malignan t neoplasm of breast Completed 201206/25/2014 RECORDED 01/16/20 13 2:28PM BY JOSHUA ARTHUR MA, ANNOTATI ON/ADDEN DUM Otoniel Diehl'Alessan eleazar null, [facility] 5 16:38:26 Cough 17994102 Completed 201206/25/2014 RECORDED 01/16/20 13 2:28PM BY JOSHUA ARTHUR MA, ANNOTATI ON/ADDEN DUM Otoniel Shanita'Alessan eleazar null, [facility] 5 16:38:25 Cramp in limb 270122153 Completed 201206/25/2014 RECORDED 01/16/20 13 2:28PM BY JOSHUA ARTHUR MA, ANNOTATI ON/ADDEN DUM Otoniel D'Alessan eleazar null, [facility] 5 16:38:25 Female genital organ symptoms 080231640 Completed 201206/25/2014 RECORDED 01/16/20 13 2:28PM BY JOSHUA ARTHUR MA, ANNOTATI ON/ADDEN DUM Otoneil D'Alessan eleazar null, [facility] 5 16:38:25 Headache 05774633 Completed 201206/25/2014 RECORDED 01/16/20 13 2:27PM BY JOSHUA ARTHUR MA, JENNIFER ON/ADDEN DUM Otoniel D'Alessan eleazar null, [facility] 5 16:38:25 General symptom 789466738 Completed 201206/25/2014 RECORDED 01/16/20 13 2:28PM BY JOSHUA ARTHUR MA, ANNOTATI ON/ADDEN DUM Otoniel D'Alessan eleazar null, [facility] 5 16:38:25 Knee pain Completed 201206/25/2014 IMPRESSI ON: XRAY C/W BARRETO'S CYST, CAUSING SIGNIFIC ANT FUNCTION AL IMPAIRME NT, X 6 MONTHS; RECORDED 01/16/20 13 2:28PM BY JOSHUA ARTHUR MA, JENNIFER ON/ADDEN DUM Otoniel D'Alessan eleazar null, [facility] 5 16:38:25 Malaise and fatigue 415339775 Completed 201206/25/2014 RECORDED 01/16/20 13 2:28PM BY JOSHUA ARTHUR MA, ANNOTATI ON/ADDEN DUM Otoniel D'Alessan eleazar null, [facility] 5 16:38:25 Pneumoni a 148112700 Completed 201206/25/2014 RECORDED 01/16/20 13 2:27PM BY JOSHUA ARTHUR MA, JENNIFER ON/ADDEN DUM Otoniel D'Alessan eleazar null, [facility] 5 16:38:25 Psychoge kristin headache 34478602 Completed 201206/25/2014 RECORDED 01/16/20 13 2:28PM BY JOSHUA ARTHUR MA, ANNOTATI ON/ADDEN DUM Otoniel D'Alessan eleazar null, [facility] 5 16:38:25 Urinary tract infectio us disease 25378658 Completed 201206/25/2014 RECORDED 01/16/20 13 2:27PM BY JOSHUA ARTHUR MA, ANNOTATI ON/ADDEN DUM Otoniel Shanita'Alessan eleazar null, [facility] 5 16:38:25 Left lower quadrant pain 993650811 Completed 201206/26/2014 RECORDED 01/16/20 13 2:28PM BY JOSHUA ARTHUR MA, ANNOTATI ON/ADDEN DUM Otoniel Shanita'Alessan eleazar null, [facility] 5 16:38:26 Abdomina l pain 51037276 Completed 201206/26/2014 IMPRESSI ON: AFEBRILE , NON-ACUT E ABDOMEN; RECORDED 01/16/20 13 2:28PM BY JOSHUA ARTHUR MA, ANNOTJOSELO ON/ADDEN DUM Otoniel D'Alessan eleazar null, [facility] 5 16:38:25 Acute pharyngi tis 032959618 Completed 201206/26/2014 RECORDED 01/16/20 13 2:28PM BY JOSHUA ARTHUR MA, ANNOTATI ON/ADDEN DUM Otoniel D'Alessan eleazar null, [facility] 5 16:38:25 Patient status finding [id number] Completed 201206/26/2014 RECORDED 01/16/20 13 2:27PM BY JOSHUA ARTHUR MA, ANNOTATI ON/ADDEN DUM ROSY Calles, [facility] 6 15:28:52 Screenin g for malignan t neoplasm of breast Completed 201206/26/2014 RECORDED 01/16/20 13 2:28PM BY JOSHUA ARTHUR MA, ANNOTATI ON/ADDEN DUM Otoniel D'Alessan eleazar null, [facility] 5 16:38:26 Cough 38140306 Completed 201206/26/2014 RECORDED 01/16/20 13 2:28PM BY JOSHUA ARTHUR MA, ANNOTATI ON/ADDEN DUM Otoniel D'Alessan eleazar null, [facility] 5 16:38:25 Cramp in limb 212991248 Completed 201206/26/2014 RECORDED 01/16/20 13 2:28PM BY JOSHUA ARTHUR MA, ANNOTATI ON/ADDEN DUM Otoniel D'Alessan eleazar null, [facility] 5 16:38:25 Female genital organ symptoms 022250180 Completed 201206/26/2014 RECORDED 01/16/20 13 2:28PM BY JOSHUA ARTHUR MA, ANNOTATI ON/ADDEN DUM Otoniel D'Alessan eleazar null, [facility] 5 16:38:25 Headache 23990632 Completed 201206/26/2014 RECORDED 01/16/20 13 2:27PM BY JOSHUA ARTHUR MA, ANAATI ON/ADDEN DUM Otoniel D'Alessan eleazar null, [facility] 5 16:38:25 General symptom 697458678 Completed 201206/26/2014 RECORDED 01/16/20 13 2:28PM BY JOSHUA ARTHUR MA, ANAATI ON/ADDEN DUM Otoniel D'Alessan eleazar null, [facility] 5 16:38:25 Knee pain Completed 201206/26/2014 IMPRESSI ON: XRAY C/W BARRETO'S CYST, CAUSING SIGNIFIC ANT FUNCTION AL IMPAIRME NT, X 6 MONTHS; RECORDED 01/16/20 13 2:28PM BY JOSHUA ARTHUR MA, ANNOTATI ON/ADDEN DUM Otoniel D'Alessan eleazar null, [facility] 5 16:38:25 Malaise and fatigue 115236265 Completed 201206/26/2014 RECORDED 01/16/20 13 2:28PM BY JOSHUA ARTHUR MA, ANNOTATI ON/ADDEN DUM Otoniel D'Alessan eleazar null, [facility] 5 16:38:25 Pneumoni a 284414566 Completed 201206/26/2014 RECORDED 01/16/20 13 2:27PM BY JOSHUA ARTHUR MA, ANNOTATI ON/ADDEN DUM Otoniel D'Alessan eleazar null, [facility] 5 16:38:25 Psychoge kristin headache 18283798 Completed 201206/26/2014 RECORDED 01/16/20 13 2:28PM BY JOSHUA ARTHUR MA, ANNOTATI ON/ADDEN DUM Otoniel D'Alessan eleazar null, [facility] 5 16:38:25 Urinary tract infectio us disease 64123755 Completed 201206/26/2014 RECORDED 01/16/20 13 2:27PM BY JOSHUA ARTHUR MA, ANNOTATI ON/ADDEN DUM Otoniel D'Alessan eleazar null, [facility] 5 16:38:25 Left lower quadrant pain 554232482 Completed 201206/02/2014 RECORDED 01/16/20 13 2:28PM BY JOSHUA ARTHUR MA, ANNOTATI ON/ADDEN DUM Otoniel D'Alessan eleazar null, [facility] 5 16:38:26 Abdomina l pain 56002713 Completed 201206/02/2014 IMPRESSI ON: AFEBRILE , NON-ACUT E ABDOMEN; RECORDED 01/16/20 13 2:28PM BY JOSHUA ARTHUR MA, ANNOTATI ON/ADDEN DUM Otoniel D'Alessan eleazar null, [facility] 5 16:38:25 Acute pharyngi tis 960026009 Completed 201206/02/2014 RECORDED 01/16/20 13 2:28PM BY JOSHUA ARTHUR MA, ANNOTATI ON/ADDEN DUM Otoniel D'Alessan eleazar null, [facility] 5 16:38:25 Patient status finding [id number] Completed 201206/02/2014 RECORDED 01/16/20 13 2:27PM BY JOSHUA ARTHUR MA, ANNOTATI ON/ADDEN DUM Heena boudreaux MA null, [facility] 6 15:28:52 Screenin g for malignan t neoplasm of breast Completed 201206/02/2014 RECORDED 01/16/20 13 2:28PM BY JOSHUA ARTHUR MA, ANNOTATI ON/ADDEN DUM Otoniel D'Alessan eleazar null, [facility] 5 16:38:26 Screenin g for malignan t neoplasm of cervix Completed 201206/02/2014 RECORDED 01/16/20 13 2:28PM BY JOSHUA ARTHUR MA ANNOTATI ON/ADDEN DUM ROSY Calles, [facility] 6 15:28:49 Cough [id number] Completed 201206/02/2014 RECORDED 01/16/20 13 2:28PM BY JOSHUA ARTHUR MA ANNOTJOSELO ON/ADDEN DUM Otoniel Shanita'Alessan eleazar null, [facility] 5 16:38:25 Cramp in limb 645578392 Completed 201206/02/2014 RECORDED 01/16/20 13 2:28PM BY JOSHUA ARTHUR MA, ANNOTATI ON/ADDEN DUM Otoniel D'Alessan eleazar null, [facility] 5 16:38:25 Divertic ulitis of colon 847259290 Completed 201206/02/2014 RECORDED 01/16/20 13 2:28PM BY JOSHUA ARTHUR MA ANNOTATI ON/ADDEN DUM Heena boudreaux MA null, [facility] 6 15:28:02 Female genital organ symptoms 740552748 Completed 201206/02/2014 RECORDED 01/16/20 13 2:28PM BY JOSHUA ARTHUR MA, ANNOTATI ON/ADDEN DUM Otoniel D'Alessan eleazar null, [facility] 5 16:38:25 Headache 79238904 Completed 201206/02/2014 RECORDED 01/16/20 13 2:27PM BY JOSHUA ARTHUR MA, ANNOTATI ON/ADDEN DUM Otoniel D'Alessan eleazar null, [facility] 5 16:38:25 General symptom 964691626 Completed 201206/02/2014 RECORDED 01/16/20 13 2:28PM BY JOSHUA ARTHUR MA, ANNOTATI ON/ADDEN DUM Otoniel D'Alessan eleazar null, [facility] 5 16:38:25 Knee pain Completed 201206/02/2014 IMPRESSI ON: XRAY C/W BARRETO'S CYST, CAUSING SIGNIFIC ANT FUNCTION AL IMPAIRME NT, X 6 MONTHS; RECORDED 01/16/20 13 2:28PM BY JOSHUA ARTHUR MA, ANNOTATI ON/ADDEN DUM Otoniel D'Alessan eleazar null, [facility] 5 16:38:25 Malaise and fatigue 751290699 Completed 201206/02/2014 RECORDED 01/16/20 13 2:28PM BY JOSHUA ARTHUR MA, ANNOTATI ON/ADDEN DUM Otoniel D'Alessan eleazar null, [facility] 5 16:38:25 Pneumoni a 328021292 Completed 201206/02/2014 RECORDED 01/16/20 13 2:27PM BY JOSHUA ARTHUR MA, ANNOTATI ON/ADDEN DUM Otoniel D'Alessan eleazar null, [facility] 5 16:38:25 Psychoge kristin headache 59484397 Completed 201206/02/2014 RECORDED 01/16/20 13 2:28PM BY JOSHUA ARTHUR MA, ANNOTATI ON/ADDEN DUM Otoniel Aguayo eleazar null, [facility] 5 16:38:25 Urinary tract infectio us disease 66144888 Completed 201206/02/2014 RECORDED 01/16/20 13 2:27PM BY JOSHUA ARTHUR MA, ANNOTATI ON/ADDEN DUM Otoniel Aguayo eleazar null, [facility] 5 16:38:25 Adult health examinat ion Completed 201206/25/2014 STORY: FOULKES/ ROUTINE MANAGER HARBOR/MAMM O UTD; RECORDED 03/11/20 13 1:32PM BY HEENA BHAKTA MA, ANNOTJOSELO ON/ADDEN DUM ROSY Calles, [facility] 6 15:28:45 Adult health examinat ion Completed 201206/26/2014 STORY: FOULKES/ ROUTINE MANAGER HARBOR/MAMM O UTD; RECORDED 03/11/20 13 1:32PM BY HEENA BHAKTA MA, ANNOTJOSELO ON/ADDEN DUM ROSY Calles, [facility] 6 15:28:45 Adult health examinat ion Completed 201206/02/2014 STORY: FOULKES/ ROUTINE MANAGER HARBOR/MAMM O UTD; RECORDED 03/11/20 13 1:32PM BY HEENA BHAKTA MA, ANNOTATI ON/ADDEN DUM ROSY Calles, [facility] 6 15:28:45 Mammogra phy abnormal 462023030 Completed 201306/25/2014 RECORDED 01/23/20 14 3:36PM BY JOSHUA ARTHUR MA, ANNOTJOSELO ON/ADDEN DUM Otoniel bush null, [facility] 5 16:38:26 Follow-u p encounte r Completed 201306/25/2014 RECORDED 01/23/20 14 3:36PM BY JOSHUA ARTHUR MA, ANNOTATI ON/ADDEN DUM Otoniel D'Alessan eleazar null, [facility] 5 16:38:26 Mammogra phy abnormal 987561493 Completed 201306/26/2014 RECORDED 01/23/20 14 3:36PM BY JOSHUA ARTHUR MA, ANNOTATI ON/ADDEN DUM Otoniel D'Alessan eleazar null, [facility] 5 16:38:26 Follow-u p encounte r Completed 201306/26/2014 RECORDED 01/23/20 14 3:36PM BY JOSHUA ARTHUR MA, ANNOTATI ON/ADDEN DUM Otoniel D'Alessan eleazar null, [facility] 5 16:38:26 Mammogra phy abnormal 639917783 Completed 201306/02/2014 RECORDED 01/23/20 14 3:36PM BY JOSHUA ARTHUR MA, JENNIFER ON/ADDEN DUM Otoniel D'Alessan eleazar null, [facility] 5 16:38:26 Anemia 573695966 Completed 201308/27/2025 Opal Moss PA-C [address] [address], [facility] [place], [address], [facility] 5 15:42:52 Divertic ulitis of colon 192562504 Active 2013 Heena boudreaux [place] null, [facility] 6 15:28:02 Follow-u p encounte r Completed 201306/02/2014 RECORDED 01/23/20 14 3:36PM BY JOSHUA ARTHUR MA, JENNIFER ON/ADDEN DUM Otoniel D'Alessan eleazar null, [facility] 5 16:38:26 Adult health examinat ion Completed 201310/30/2016 ROSY Calles, [facility] 6 15:28:45 Herpes zoster 5495099 Active 2013 ROSY Calles, [facility] 6 15:28:25 Anxiety disorder 541243002 Completed 201308/27/2025 Opal Moss PA-C [address], [place], [address], [facility] 5 15:42:31 Insomnia 089592285 Completed 201309/22/2019 Removal Reason: RESOLVED 2014 ROSY Alvarez, [facility] 9 15:56:31 Leukopen ia 77874834 Completed 201308/25/2024 Opal Moss PA-C [address], [place], [address], [facility] 4 15:04:19 Neutrope kristin disorder 590369354 Active 2013 hematolo gy ov 01/2019, no followup needed, Dr Brian zarate, [facility] 9 15:06:39 Patient status finding 469062971 Completed 201310/30/2016 ROSY Calles, [facility] 6 15:28:52 Administ ration of diphther ia, pertussi s, and tetanus vaccine Completed 201310/30/2016 ROSY Calles, [facility] 6 15:28:39 Function al visual loss 490231263 Completed 201309/22/2019 Removal Reason: ON TWICE ROSY Alvarez, [facility] 9 15:56:55 Screenin g for malignan t neoplasm of cervix Completed 201310/30/2016 Heena boudreaux MA null, [facility] 6 15:28:49 Pain in limb 71069337 Completed 201310/30/2016 Heena boudreaux MA null, [facility] 6 15:28:58 Hyperlip idemia 78343365 Active 2020 Jaquelin auguste null, [facility] 1 23:41:30 COVID-19 327352059 Completed 202108/27/2025 Opal Moss PA-C [address], [place], [address], [facility] 5 15:42:57 Neuropat hy 478827250 Active 2023 Opal Moss PA-C [address], [place], [address], [facility] 4 15:22:23 Prediabe pillo 398094504 Active 2024 Opal Moss PA-C [address], [place], [address], [facility] 5 18:30:16 Snoring 36241796 Active 2024 Opal Moss PA-C [address], [place], [address], [facility] 5 18:30:22 Pain of left knee joint 11721219064 4107 Active 2024 Opal Moss PA-C [address], [place], [address], [facility] 5 15:55:49 Problem Notes None recorded. Procedures Surgical History Date Name Laterality Status Provider Name and Address Organization Details Recorded Time 10/06/20 Most Recent Mammogram completed Kathleen Grimes [facility] 10/07/2024 08:58:14 10/03/20 23 Ultrasound breast limited completed Kathleen Grimes [facility] 10/04/2023 07:51:52 09/21/20 21 Mammogram Screening completed Mar Allen [facility] 11/02/2021 15:10:25 08/23/20 21 Date of Last Pap Smear completed Mar Allen [facility] 11/10/2021 16:27:30 01/09/20 20 injection completed Susana Concepcion [facility] 01/15/2020 13:09:44 04/08/20 18 Date of Last Colonoscopy completed Ruchiely LemusMarcus [facility] 04/08/2018 14:21:16 04/08/20 18 [facility] 14:20:58 11/19/19 10 partial resection of colon completed Jaquelin Caldwell [facility] 09/22/2019 17:07:21 Other completed Hanny Mattson [facility] 10/18/2015 14:23:49 Imaging Results None recorded. Procedure Notes None recorded. Medical Equipment None Reported. Allergies No known drug allergies Medications Name Sig Start Date Stop Date Status Note LastModified by Organization Details LastModified Time amoxicill in 500 mg capsule 08/25 completed Not Available Not Available Not Available benzonata te 200 mg capsule Q 8 HR 06/18 completed RECORDED 10/01/20 09 10:39AM BY JAGDISH ARTHUR PA-C, MEDICATI ON AUTO-DERICK CTIVATIO N; Not [...] 11 10:50AM BY OTONIEL BUSH MD, ANNOTATI ON/AMINTA DUM; Not Available Not [...] Details Last Updated DateTime 5 161.29 cm 30.3 kg/m2 07602.0 7 g 72 /min 99 % 97.3 [degF] 117/80 mm[Hg] Maddy Liriano MA [facility] 5 15:48:22 Date Recorded Body height Body mass index (BMI) Body weight Heart rate Oxygen saturation Body temperature Systolic And Diastolic Provider Name and Address Organization Details Last Updated DateTime 5 161.29 cm 28.8 kg/m2 71207.7 4 g 75 /min 97 % 97.6 [degF] 99/67 mm[Hg] Navneet daniel [facility] 5 09:20:48 Date Recorded Body height Body mass index (BMI) Body weight Heart rate Oxygen saturation Body temperature Systolic And Diastolic Provider Name and Address Organization Details Last Updated DateTime 4 161.29 cm 30.7 kg/m2 21381.2 6 g 91 /min 97 % 97.3 [degF] 104/70 mm[Hg] Maddy Lriiano MA [facility] 4 14:33:42 Date Recorded Body height Body mass index (BMI) Body weight Heart rate Oxygen saturation Body temperature Systolic And Diastolic Provider Name and Address Organization Details Last Updated DateTime 5 161.29 cm 29.8 kg/m2 00071.3 g 75 /min 97 % 98.2 [degF] 104/67 mm[Hg] Maddy Liriano MA [facility] 5 15:36:56 Date Recorded Body height Body mass index (BMI) Body weight Heart rate Oxygen saturation Body temperature Systolic And Diastolic Provider Name and Address Organization Details Last Updated DateTime 5 161.29 cm 29.8 kg/m2 98441.3 g 85 /min 99 % 97.6 [degF] 104/66 mm[Hg] Annalise Kelsey MA [facility] 5 15:13:57 Social History Question Answer Notes LastModified by Organizat ion Details LastModified Time Tobacco Smoking Status Never Smoker Hanny zarate [facility] 10/18/2015 14:22:44 Do You Have An Advance Directive? Yes alessioelpidio Information not available 02/10/2022 Is Blood Transfusion Acceptable In An Emergency? Yes sudha Information not available 10/20/2016 What Is Your Level Of Caffeine Consumption? Occasional 1-2 Cups Daily Coffee kcElectro-LuminXhelen Information not available 02/10/2022 How Much Tobacco Do You Chew? None divyaulteran Information not available 10/20/2016 What Type Of Diet Are You Following? REGULAR [employer]ariPhy CommunicationsultOKKAM Information not available 10/20/2016 Which Illicit Or Recreational Drugs Have You Used? None Kanshu Information not available 10/20/2016 Live Alone Or With Others? With Others Pt Lives W/ Dtr Age 19other Children Are On Their Own. [place] Information not available 02/10/2022 Do You Take Precautions To Prevent Distracted Driving? Yes Kanshu Information not available 10/20/2016 How Often Do You Need To Have Someone Help You When You Read Instructions, Pamphlets, Or Other Written Material From Your Doctor Or Pharmacy? Never Kanshu Information not available 10/20/2016 Have You Served In The ? No Kanshu Information not available 10/20/2016 What Was The Date Of Your Most Recent Tobacco Screening? 08/27/2025 [email or web address] Information not available 08/27/2025 How Many Children Do You Have? 3 [employer]ultOKKAM Information not available 10/20/2016 Do You Use Protection During Sex? No Bloomzmontone Information not available 02/10/2022 Do You Use Your Seat Belt Or Car Seat Routinely? Yes Bloomzmontone Information not available 02/10/2022 Seat Belts Used Routinely Yes Archer[employer] Technologytone Information not available 02/10/2022 Are You Sexually Active? Yes Bloomzmontone Information not available 02/10/2022 Smoke Alarm In Home Yes [employer] Information not available 02/10/2022 Do You Have Smoke And Carbon Monoxide Detectors In Your Home? Yes [place] Information not available 02/10/2022 At What Age Did You Start Smoking Tobacco? 0 Information not available 10/30/2016 Are You Passively Exposed To Smoke? No ClariPhy Communicationsultzki Information not available 10/20/2016 How Much Tobacco Do You Smoke? No Information not available 10/18/2015 Do You Use Sunscreen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
== END 2025-11-02 16:04 | disposition home or self-care (01) ==
LOC: HO.HPHYS 15:09
PROVIDERS: PCP Physician Assistant Medical; Visit Provider Physician Assistant
DX: M25.562 Pain in left knee (principal); G89.29 Other chronic pain; G62.9 Polyneuropathy, unspecified; S83.242A Other tear of medial meniscus, current injury, left knee, initial encounter
CPT/HCPCS: 99213